=== PATIENT | male | born 1940 | race Caucasian/White ===

== ENCOUNTER 2016-04-20 13:20 | Outpatient (CLI) | payer OTHER, MEDICARE | END 2016-04-20 23:59 | DX: D72.829 Elevated white blood cell count, unspecified (principal); E78.2 Mixed hyperlipidemia; I10 Essential (primary) hypertension ==

== ENCOUNTER 2016-11-22 13:33 | Outpatient (CLI) | payer OTHER, MEDICARE ==
[2016-11-22 19:24] LABS: BASOPHILS # (AUTO) 0.1 10^3/uL (0.0-0.1); BASOPHILS % (AUTO) 0.5 %; EOSINOPHILS # (AUTO) 0.1 10^3/uL (0.0-0.7); EOSINOPHILS % (AUTO) 0.7 %; HCT - HEMATOCRIT 47.8 % (42.0-52.0); LYMPHOCYTES # (AUTO) 1.8 10^3/uL (1.5-3.5); LYMPHOCYTES % (AUTO) 14.5 %; MEAN CORPUSCULAR HGB CONC 33.5 g/dL (32.0-36.0); MEAN CORPUSCULAR VOLUME 95.5 fL (80.0-94.0); MEAN PLATELET VOLUME 8.5 fL (7.4-11.4); MONOCYTES # (AUTO) 1.2 10^3/uL (0.0-1.0); MONOCYTES % (AUTO) 9.7 %; NEUTROPHILS # (AUTO) 9.4 10^3/uL (1.5-6.6); NEUTROPHILS % (AUTO) 74.6 %; NUCLEATED RED BLOOD CELLS AUTO 0.1 /100WBC; RED CELL DISTRIBUTION WIDTH 13.6 % (12.0-15.0); UNCORRECTED WHITE BLOOD COUNT 12.6 x10^3/uL; WHITE BLOOD COUNT 12.6 x10^3/uL (4.8-10.8)
[2016-11-22 19:39] LABS: ALBUMIN/GLOBULIN RATIO 1.4 (1.0-2.2); BILIRUBIN,TOTAL 0.4 mg/dL (0.2-1.0); CALCIUM 9.8 mg/dL (8.5-10.3); CREATININE 0.9 mg/dL (0.6-1.2); POTASSIUM 3.9 mmol/L (3.5-5.0); TOTAL PROTEIN 6.9 g/dL (6.7-8.2)
== END 2016-11-22 13:34 | disposition home or self-care (01) ==
LOC: LAB.S 13:33
PROVIDERS: ATTEND Internal Medicine
DX: D72.829 Elevated white blood cell count, unspecified (principal); I10 Essential (primary) hypertension
CPT/HCPCS: 36415; 80053; 85025

== ENCOUNTER 2017-12-27 08:59 | Outpatient (CLI) | payer OTHER, MEDICARE ==
[2017-12-27 18:19] LABS: HB2 TOTAL 17.1 g/dL; HEMOGLOBIN A1C 0.77 g/dL; HEMOGLOBIN A1C % 6.3 % (4.6-6.2)
[2017-12-27 18:25] LABS: BUN - BLOOD UREA NITROGEN 22 mg/dL (6-20); CALCIUM 9.4 mg/dL (8.5-10.3); CARBON DIOXIDE - CO2 27 mmol/L (21-32); CHLORIDE 100 mmol/L (101-111); CHOL/HDL RATIO 4.8 (<5.0); CHOLESTEROL 192 mg/dL; GFR - MDRD 73 (>89); GLUCOSE 109 mg/dL (70-100); HDL CHOLESTEROL 40 mg/dL; LDL CHOLESTEROL,CALCULATED 116 mg/dL; LDL/HDL RATIO 2.9 (<3.6); SODIUM 134 mmol/L (135-145); VLDL CHOLESTEROL 36 mg/dL
== END 2017-12-27 09:00 | disposition home or self-care (01) ==
LOC: LAB.F 08:59
PROVIDERS: ATTEND Internal Medicine
DX: Z00.00 Encounter for general adult medical examination without abnormal findings (principal); I10 Essential (primary) hypertension; Z13.1 Encounter for screening for diabetes mellitus; D72.829 Elevated white blood cell count, unspecified
CPT/HCPCS: 36415; 80048; 80061; 83036; 83721; 85025

== ENCOUNTER 2018-01-03 09:42 | Outpatient (CLI) | payer OTHER, MEDICARE ==
[2018-01-03 17:32] LABS: BASOPHILS # (AUTO) 0.1 10^3/uL (0.0-0.1); BASOPHILS % (AUTO) 0.7 %; EOSINOPHILS # (AUTO) 0.1 10^3/uL (0.0-0.7); EOSINOPHILS % (AUTO) 0.9 %; HGB - HEMOGLOBIN 15.7 g/dL (14.0-18.0); LYMPHOCYTES # (AUTO) 1.8 10^3/uL (1.5-3.5); LYMPHOCYTES % (AUTO) 13.2 %; MEAN CORPUSCULAR HEMOGLOBIN 32.3 pg (27.0-31.0); MEAN CORPUSCULAR HGB CONC 33.5 g/dL (32.0-36.0); MEAN CORPUSCULAR VOLUME 96.4 fL (80.0-94.0); MEAN PLATELET VOLUME 8.6 fL (7.4-11.4); MONOCYTES # (AUTO) 1.5 10^3/uL (0.0-1.0); MONOCYTES % (AUTO) 11.7 %; NEUTROPHILS # (AUTO) 9.8 10^3/uL (1.5-6.6); NEUTROPHILS % (AUTO) 73.5 %; PLT - PLATELET COUNT 229 10^3/uL (130-450); RED BLOOD COUNT 4.86 10^6/uL (4.70-6.10); RED CELL DISTRIBUTION WIDTH 14.2 % (12.0-15.0); WHITE BLOOD COUNT 13.3 x10^3/uL (4.8-10.8)
== END 2018-01-03 09:43 | disposition home or self-care (01) ==
LOC: LAB.F 09:42
PROVIDERS: ATTEND Internal Medicine
DX: D72.829 Elevated white blood cell count, unspecified (principal)
CPT/HCPCS: 36415; 85025

== ENCOUNTER 2018-03-06 10:36 | Emergency (ER) | payer OTHER, MEDICARE ==
--- NOTE | 2018-03-06 11:52 | XRAY Report ---
Reason: left shoulder injury Procedure Date: 03/06/2018 Accession Number: [id number] / [id number] Procedure: XR - Shoulder 3 View LT CPT Code: FULL RESULT: EXAM: LEFT SHOULDER RADIOGRAPHY EXAM DATE: 03/06/2018 11:43 AM. CLINICAL HISTORY: Left shoulder injury. COMPARISON: None. TECHNIQUE: 3 views. FINDINGS: Bones: Deformity of the humeral head suggestive of so-called Hill-Sachs lesion, prior dislocation. No acute fracture or bone lesion. Joints: The glenohumeral and acromioclavicular joints are normally located at this time. Soft tissues: The visualized hemithorax is unremarkable. No soft tissue swelling. IMPRESSION: Evidence of prior dislocation. Currently no acute fracture or dislocation is detected. [facility]
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
[2018-03-06 12:15] VITALS: BP 134/74
== END 2018-03-06 12:14 | disposition home or self-care (01) ==
LOC: ED 10:36
DX: M25.512 Pain in left shoulder (principal); W01.0XXA Fall on same level from slipping, tripping and stumbling without subsequent striking against object, initial encounter; Y92.410 Unspecified street and highway as the place of occurrence of the external cause; Z87.828 Personal history of other (healed) physical injury and trauma; I10 Essential (primary) hypertension
CPT/HCPCS: 99282; 99283

== ENCOUNTER 2018-05-24 12:36 | Outpatient (CLI) | payer MEDICARE, OTHER ==
--- NOTE | 2018-05-25 09:37 | MRI Report ---
Reason: JOINT PAIN IN LEFT SHOULDER Procedure Date: 05/24/2018 Accession Number: [id number] / [id number] Procedure: MRI - Shoulder LT W/O CPT Code: FULL RESULT: EXAM: LEFT SHOULDER MRI WITHOUT CONTRAST EXAM DATE: 05/24/2018 12:59 PM. CLINICAL HISTORY: Joint pain in left shoulder. COMPARISON: None. TECHNIQUE: Multiplanar, multisequence T1-weighted and fluid-sensitive sequences of the shoulder without contrast. Other: None. FINDINGS: Acromioclavicular Region: The acromion is type II unipartite. Acromioclavicular joint is moderately osteoarthritic. The coracoacromial and coracoclavicular ligaments are intact. Moderate amount of bursal fluid is present. Glenohumeral Region: Superior subluxation of the humeral head with respect to the bony glenoid. Small joint effusion. The articular cartilage is unremarkable. The glenohumeral ligaments and joint capsule are unremarkable. Bone Marrow: No fracture, marrow edema or bone lesions. Labrum: The labrum is unremarkable on this nonarthrographic study. Musculature/Rotator Cuff: Full-thickness tear and proximal retraction of the supraspinatus and infraspinatus portion of the rotator cuff with significant fatty atrophy of these muscle bundles. Series 801 image 22, series 701 image 11. Subscapularis shows a tear of the superior one-third. Teres minor is intact. Biceps Tendon: The long head of the biceps tendon is perched at the medial border of the bicipital groove and slightly flattened. Series 401 image 15. Some type I signal change also noted. Other: The subcutaneous tissues are unremarkable. IMPRESSION: 1. Type II unipartite undersurface osseous acromion shape. AC joint is moderately osteoarthritic. Moderate amount of bursal fluid also is present. 2. Superior subluxation of the humeral head with respect to the bony glenoid, small joint effusion. 3. Full-thickness tears with proximal retraction and fatty atrophy of the supraspinatus portion and infraspinatus portion of the rotator cuff. Subscapularis shows a tear at the superior one-third. There is also resulting medial subluxation of the long head of the biceps tendon onto the medial margin of the bicipital groove. Some flattening of the biceps tendon. [facility] MUSCULOSKELETAL RADIOLOGY SECTION
== END 2018-05-24 12:37 | disposition home or self-care (01) ==
LOC: DI 12:36
PROVIDERS: ATTEND Orthopaedic Surgery Sports Medicine
DX: S43.002A Unspecified subluxation of left shoulder joint, initial encounter (principal); M25.412 Effusion, left shoulder; M75.102 Unspecified rotator cuff tear or rupture of left shoulder, not specified as traumatic; M67.88 Other specified disorders of synovium and tendon, other site

== ENCOUNTER 2018-07-07 15:37 | Outpatient (CLI) | payer MEDICARE, OTHER ==
[2018-07-07 17:34] LABS: HGB - HEMOGLOBIN 15.7 g/dL (14.0-18.0); MEAN CORPUSCULAR HEMOGLOBIN 31.6 pg (27.0-31.0); MEAN CORPUSCULAR HGB CONC 33.3 g/dL (32.0-36.0); MEAN CORPUSCULAR VOLUME 94.9 fL (80.0-94.0); MEAN PLATELET VOLUME 8.9 fL (7.4-11.4); RED BLOOD COUNT 4.95 10^6/uL (4.70-6.10); RED CELL DISTRIBUTION WIDTH 13.3 % (12.0-15.0); WHITE BLOOD COUNT 11.9 x10^3/uL (4.8-10.8)
[2018-07-07 17:37] LABS: CREATININE 0.9 mg/dL (0.6-1.2)
[2018-07-07 17:49] LABS: HB2 TOTAL 17.4 g/dL; HEMOGLOBIN A1C 0.77 g/dL; HEMOGLOBIN A1C % 6.2 % (4.6-6.2)
[2018-07-07 18:28] LABS: CALCIUM 9.5 mg/dL (8.5-10.3)
== END 2018-07-07 23:59 | disposition home or self-care (01) ==
LOC: LAB.F 15:37
PROVIDERS: ATTEND Internal Medicine
DX: I10 Essential (primary) hypertension (principal); R73.01 Impaired fasting glucose; M25.512 Pain in left shoulder
CPT/HCPCS: 36415; 80048; 83036; 85027

== ENCOUNTER 2018-07-24 13:42 | Outpatient (CLI) | payer MEDICARE, OTHER ==
[2018-07-24 14:02] LABS: BASOPHILS # (AUTO) 0.1 10^3/uL (0.0-0.1); BASOPHILS % (AUTO) 0.4 %; EOSINOPHILS # (AUTO) 0.1 10^3/uL (0.0-0.7); EOSINOPHILS % (AUTO) 0.3 %; HGB - HEMOGLOBIN 15.6 g/dL (14.0-18.0); LYMPHOCYTES # (AUTO) 1.7 10^3/uL (1.5-3.5); LYMPHOCYTES % (AUTO) 11.1 %; MEAN CORPUSCULAR HEMOGLOBIN 31.6 pg (27.0-31.0); MEAN CORPUSCULAR HGB CONC 33.8 g/dL (32.0-36.0); MEAN CORPUSCULAR VOLUME 93.6 fL (80.0-94.0); MEAN PLATELET VOLUME 7.4 fL (7.4-11.4); MONOCYTES # (AUTO) 1.5 10^3/uL (0.0-1.0); MONOCYTES % (AUTO) 9.7 %; NEUTROPHILS % (AUTO) 78.5 %; PLT - PLATELET COUNT 230 10^3/uL (130-450); RED BLOOD COUNT 4.94 10^6/uL (4.70-6.10); RED CELL DISTRIBUTION WIDTH 13.3 % (12.0-15.0); WHITE BLOOD COUNT 15.3 x10^3/uL (4.8-10.8)
[2018-07-24 14:17] LABS: ALBUMIN 3.8 g/dL (3.2-5.5); ALBUMIN/GLOBULIN RATIO 1.2 (1.0-2.2); BILIRUBIN,TOTAL 0.8 mg/dL (0.2-1.0); CALCIUM 9.4 mg/dL (8.5-10.3); CREATININE 0.9 mg/dL (0.6-1.2); TOTAL PROTEIN 7.1 g/dL (6.7-8.2)
[2018-07-24 14:30] LABS: PLATELET ESTIMATE, MANUAL NORMAL (130-450,000) (NORMAL); PLATELET MORPHOLOGY NORMAL APPEARANCE (NORMAL); RBC MORPHOLOGY (MULTIPLE) NORMAL APPEARANCE (NORMAL)
== END 2018-07-24 13:43 ==
LOC: LAB 13:42 → RT 13:43
PROVIDERS: ATTEND Orthopaedic Surgery Sports Medicine
DX: Z01.810 Encounter for preprocedural cardiovascular examination (principal); M75.102 Unspecified rotator cuff tear or rupture of left shoulder, not specified as traumatic
CPT/HCPCS: 36415; 80053; 85025; 93005

== ENCOUNTER 2018-07-25 13:44 | Outpatient (CLI) | payer MEDICARE, OTHER ==
[2018-07-25 14:04] LABS: BILIRUBIN,URINE NEGATIVE (NEGATIVE); GLUCOSE, URINE (UA) NEGATIVE (NEGATIVE); KETONES,URINE (UA) NEGATIVE (NEGATIVE); LEUKOCYTE ESTERASE, URINE NEGATIVE (NEGATIVE); NITRITE,URINE NEGATIVE (NEGATIVE); OCCULT BLOOD,URINE NEGATIVE (NEGATIVE); PROTEIN,URINE NEGATIVE (NEGATIVE); UROBILINOGEN,URINE 0.2 (NORMAL) E.U./dL (NORMAL)
[2018-07-25 14:37] LABS: CLARITY,URINE CLEAR (CLEAR)
[2018-07-25 15:03] LABS: BACTERIA,URINE None Seen /HPF (None Seen); RBC,URINE None Seen /HPF (0-5); SQUAMOUS EPITHELIAL CELL,UR NONE SEEN (<= Few)
== END 2018-07-25 13:45 | disposition home or self-care (01) ==
LOC: LAB 13:44
PROVIDERS: ATTEND Orthopaedic Surgery Sports Medicine
DX: Z01.812 Encounter for preprocedural laboratory examination (principal); M75.102 Unspecified rotator cuff tear or rupture of left shoulder, not specified as traumatic; M62.89 Other specified disorders of muscle
CPT/HCPCS: 81001; 81003

== ENCOUNTER 2018-07-26 06:06 | Day surgery (SDC) | payer MEDICARE, OTHER ==
[2018-07-26] MEDS ORDERED: LACTATED RINGERS 1,000 ML IV ONE (06:21)
[2018-07-26] MEDS ORDERED: CEFAZOLIN SODIUM IN 0.9 % NACL 2 GM/100 ML BAG IV ONE (06:29)
--- NOTE | 2018-07-26 07:07 | ANESTHESIA ---
Pre-Anesthesia VS, & Labs - Diagnosis left shoulder rotator cuff tear, bicep subluxation - Procedure left shoulder arthroscopy, rotator cuff repair, subacromial decompression Vital Signs: Temp Pulse Resp BP Pulse Ox 97.9 C H 58 L 16 166/88 H 98 07/26/18 06:36 07/26/18 06:36 07/26/18 06:36 07/26/18 06:36 07/26/18 06:36 Height 5 ft 5 in Weight (kg) 75 kg Body Mass Index 28.3 - NPO >8 hours - Lab Results Current Lab Results: Laboratory Tests 07/24/18 13:57: C-Reactive Protein 2.8 H 07/24/18 13:57: ESR 4 Home Medications and Allergies Atenolol 100 mg PO DAILY 01/21/15 Cholecalciferol (Vitamin D3) [Vitamin D3] 2,000 unit PO DAILY 01/21/15 Lisinopril 20 mg PO DAILY 01/21/15 amLODIPine [Norvasc] 5 mg PO DAILY 01/21/15 Chlorthalidone 25 mg PO DAILY 03/06/18 Allergies/Adverse Reactions: Allergies Allergy/AdvReac Type Severity Reaction Status Date / Time Sulfa (Sulfonamide Allergy Hives Verified 07/24/18 13:20 Antibiotics) Anes History & Medical History - Anesthetic History Anesthesia Complications: reports: No previous complications - Medical History Cardiovascular: reports: Hypertension, Other (syncope in past, negative stress after per patient) Pulmonary: reports: Sleep apnea (diagnosed, does not use cpap) Gastrointestinal: reports: None Urinary: reports: Benign prostate hypertrophy, Nocturia Musculoskeletal: reports: Osteoarthritis Endocrine/Autoimmune: reports: None Skin: reports: None Smoking Status: Current every day smoker (half pack per day) - Surgical History General: Cholecystectomy, Colonoscopy, Other Exam General: Alert Dental: WNL Mouth Opening: Greater than 4 Fingerbreadths Neck Mobility: Normal Mallampati classification: II Thyromental Distance: greater than 6 cm Respiratory: Lungs clear Cardiovascular: Regular rate, Normal S1, Normal S2 Mental/Cognitive Status: Alert/Oriented X3 Cognitive Status: Within normal limits Plan Anesthesia Type: General Regional Block: Per Surgeon's request for Post Op pain control Consent for Procedure(s) Verified and Reviewed: Yes Code Status: Attempt Resuscitation ASA classification: 2-Mild systemic disease Is this case an emergency?: No
[2018-07-26] MEDS ORDERED: BUPIVACAINE 0.25%-EPI 1:200000 PF 30 ML VIAL ONE (07:24)
[2018-07-26] MEDS ORDERED: EPINEPHrine 1 MG/ML AMP ONE ×2 (07:24→10:09)
[2018-07-26] MEDS ORDERED: BUPIVACAINE 0.5% PF 30 ML VIAL ONE (07:24)
[2018-07-26] MEDS ORDERED: BUPIVACAINE 0.25%-EPI 1:200000 PF 30 ML VIAL SUBQ ONE (08:29)
[2018-07-26] MEDS ORDERED: fentaNYL 100 MCG/2 ML VIAL IVP ONE (08:40)
[2018-07-26] MEDS ORDERED: SODIUM CHLORIDE 0.9% 10 ML VIAL IV ONE (08:40)
[2018-07-26] MEDS ORDERED: LIDOCAINE-MPF 2% 5 ML VIAL IM ONE (08:40)
[2018-07-26] MEDS ORDERED: DEXAMETHASONE 4 MG/ML VIAL IVP ONE (08:40)
[2018-07-26] MEDS ORDERED: ePHEDrine 50 MG/ML VIAL IVP ONE (08:40)
[2018-07-26] MEDS ORDERED: PROPOFOL 200 MG/20 ML VIAL IVP ONE (08:40)
[2018-07-26] MEDS ORDERED: MIDAZOLAM 2 MG/2 ML VIAL IVP ONE (08:40)
[2018-07-26] MEDS ORDERED: ONDANSETRON 4 MG/2 ML VIAL IVP ONE (08:40)
[2018-07-26] MEDS ORDERED: ROCURONIUM 50 MG/5 ML VIAL IVP ONE (08:40)
[2018-07-26] MEDS ORDERED: PHENYLEPHRINE 50 MG/5 ML VIAL IV ONE (08:40)
[2018-07-26] MEDS ORDERED: ROPIVACAINE 0.5% PF 20 ML AMPULE EP ONE (08:40)
--- NOTE | 2018-07-26 10:56 | IMMEDIATE POSTOPERATIVE NOTE ---
Immediate Postoperative Note - Procedure Note Procedure Date: 07/26/18 Pre-Op Diagnosis: Left rotator cuff tear subacromial impingement Procedure: Left arthroscopic rotator cuff repair, long head biceps tenodesis, ltd sad Post-Op Diagnosis: Same Primary Surgeon: Nicole Jung [employer] Driver: Collette farah Anesthesia Type: General ET tube, Local, Regional block Findings: Massive rotator cuff tear supraspinatus infraspinatus long head biceps tearing/subluxation Complications: No complications Estimated Blood Loss (in cc): 50 Plan of Care: Patient will follow delayed rotator cuff repair protocol and long head biceps protocol left shoulder. He would be passive range of motion for 8 to 12 weeks minimum. He would avoid active shoulder motion he would avoid any weightbearing lift push pull left upper extremity. With caution he would be permitted to do elbow wrist and hand motion. He would wear sling and pillow at all times.
[2018-07-26] MEDS ORDERED: ONDANSETRON 4 MG/2 ML VIAL IVP PRN (11:00)
[2018-07-26] MEDS ORDERED: oxyCODONE 5 MG TABLET PO PRN (11:03)
--- NOTE | 2018-07-26 12:06 | OPERATIVE REPORT ---
DATE OF SERVICE: 07/26/2018 Physician: Nestor Jung MD SURGEON: Nestor Jung MD CRUTCHING CONTRACTOR: None. ANESTHESIA PROVIDER: Marquez Rogers CRNA. ANESTHESIA: General endotracheal as well as left side ultrasound-guided interscalene block by anesthesia team as well as 20 mL of 0.25% Marcaine with epinephrine local. ESTIMATED BLOOD LOSS: Less than 50 mL FLUIDS: 800 mL lactated Ringer's. COMPRESSION DEVICE: Bilateral calf SCD boots. PREOPERATIVE ANTIBIOTICS: Weight-based IV Ancef. ORTHOPEDIC IMPLANTS 1. Arthrex Plum.io 5.5 BioComposite triple-loaded corkscrews x3. 2. Arthrex 8 mm SwiveLock x 19 mm. 3. Numerous #2 FiberWire sutures PREOPERATIVE DIAGNOSES 1. Left shoulder massive rotator cuff tear. 2. Left shoulder subacromial impingement. 3. Left shoulder long head biceps tearing and subluxation. POSTOPERATIVE DIAGNOSES 1. Left shoulder massive rotator cuff tear. 2. Left shoulder subacromial impingement. 3. Left shoulder long head biceps tearing and subluxation. PROCEDURES 1. Left shoulder arthroscopic rotator cuff repair, massive tear. 2. Left shoulder arthroscopic long head biceps tenodesis. 3. Left shoulder limited arthroscopic subacromial decompression of soft tissue. HISTORY OF PRESENT ILLNESS AND INDICATIONS: Patient is a gentleman who sustained a rotator cuff tear a number of months ago and had somewhat delayed operative treatment for personal reasons. He was previously indicated for operative treatment. Previous discussion of risks, benefits, and alternatives was had in the office visit. These were again highlighted in the preoperative care unit. His questions were answered. He verbalized understanding of the above and verbalized wish to proceed with operative treatment. Informed consent was given. PROCEDURE IN DETAIL: Patient has a massive rotator cuff tear, supraspinatus from the rotator interval all the way including portions of the infraspinatus. There was significant retraction medial to the glenoid rim. Long head biceps has greater than 50% tearing and subluxation, subscapularis okay, teres okay. There is glenohumeral chondromalacia and fraying of the labrum. Post-repair with medialization of the articular surface. The rotator cuff was able to be reapproximated to near anatomic footprint, though under some tension despite extensive soft tissue releases. The area has good integrity of the repair with range of motion of the shoulder. The long head biceps is well fixed in the superior aspect of the biceps groove. Previously noted soft tissues subacromial space with fibrosis and bursa tissue is cleared and there was minimal release of the coracoacromial ligament to maintain anterior superior stability. PROCEDURE: On 07/26/2018 patient was identified in the preoperative care unit. He identified his left shoulder as the operative site. This is signed. Patient is administered regional anesthesia by anesthesia team and was brought to the operating room. General anesthesia was administered. He was placed on the right side down lateral decubitus position with appropriately placed axillary roll to avoid encumbrance of the axilla. Head, neck and extremities are placed in anatomically comfortable and safe position to avoid peripheral nerve stretch and compression, down leg is gel-padded. Beanbag position is used and left upper extremity has a combination of 5-15 pounds of traction depending on the timing in the case. At this point left upper extremity is draped out. Axillary hair is shaved, as is the hair around the shoulder girdle. The shoulder girdle and left upper extremity were pre-scrubbed with Hibiclens solution and then prepped with ChloraPrep solution and draped in the normal sterile fashion. At this point, surgical pause identifies the left shoulder. Local anesthetic infused anteriorly, posteriorly and laterally. A small incision was made posteriorly. Scope was introduced into the glenohumeral joint. Diagnostic arthroscopy was carried out. Please see operative findings. At this point, anterior portal was created. Long head biceps was tagged using a #2 FiberWire suture and then released from the superior labrum. Labrum was debrided. The rotator cuff tear is debrided minimally from underneath and then attention was directed to the subacromial space. Lateral incision was made. A combination of shaver, bur and electrocautery device with appropriate flow to avoid thermal injury is used to achieve a subacromial decompression of soft tissue. There was minimal release of the coracoacromial ligament to maintain anterior superior stability should the rotator cuff failed. At this point, the edge of the rotator cuff is debrided with the shaver and then chisel and shaver used above and below the rotator cuff to release adhesions to better allow reduction of the rotator cuff. This still remained somewhat tight and this was done multiple times to try to achieve maximal freedom of the rotator cuff to have as little as possible tension on the repair. At this point, long head biceps was brought through an anterolateral axillary incision after the rotator cuff footprint is debrided first with a shaver then the articular surface is medialized by approximately 1 cm using a bur. At this point, the long head biceps is whipstitched with a #2 FiberWire and then placed into an 8 mm socket in the superior aspect of the biceps groove and held with a SwiveLock per protocol. This holds the biceps nicely and the residual suture limbs were cut. At this time, sequential placement of interrupted [id number] sutures with a [id number]-rh-rmul repair is performed posteriorly. Two of these are placed, thereby decreasing the size of the overall rotator cuff tear and bringing the posterior aspect anterior to some degree. And then sequential posterior to anterior anchors were then placed to converge the rotator cuff towards near anatomic footprint and these anchors are tied sequentially. Ultimately, the rotator cuff is reapposed in the near anatomic footprint, which is somewhat medialized. There is some tension on the cuff, but good integrity to the repair with range of motion. Hemostasis achieved. Subacromial space. Copious irrigation was performed. Instruments removed. Local anesthetic was infused around the incisions. Arthroscopic portals were closed using interrupted nylon suture. Skin is washed and dried. Xeroform dressing is applied. Dry sterile dressing was applied and the patient was placed in abduction pillow sling. Patient tolerated the procedure well. Instrument and sponge counts were correct. Patient was transferred to recovery room and will follow a delayed rotator cuff repair protocol with avoidance of any active assisted or active motion for approximately 8-10 weeks. He would be in the sling for the great majority of that though exercises elbow, wrist and hand to avoid stiffness there. Attempt was made to contact Kina patient's family/friend unavailable in the waiting room or via telephone. Patient was previously instructed on perioperative instructions as well as antibiotics and pain medication. Denies any contraindication to medication as prescribed. Will use them as directed. Patient will followup in 10-14 days for standard postop visit or sooner should problems or questions arise. Preoperatively, his questions were answered, verbalized understanding and satisfaction with the plan. TD: 07/26/2018 11:22 JAEL
[2018-07-26 12:46] VITALS: BP 118/65
== END 2018-07-26 06:07 | disposition home or self-care (01) ==
LOC: SDS 06:06
PROVIDERS: ATTEND Orthopaedic Surgery Sports Medicine
PROC: 0LS24ZZ Reposition Left Shoulder Tendon, Percutaneous Endoscopic Approach (ICD-10-PCS; 2018-07-26)
PROC: 0RNK4ZZ Release Left Shoulder Joint, Percutaneous Endoscopic Approach (ICD-10-PCS; 2018-07-26)
PROC: 0LQ24ZZ Repair Left Shoulder Tendon, Percutaneous Endoscopic Approach (ICD-10-PCS; principal; 2018-07-26 07:30)
PROC: 0RHK44Z Insertion of Internal Fixation Device into Left Shoulder Joint, Percutaneous Endoscopic Approach (ICD-10-PCS; 2018-07-26 07:30)
DX: M75.102 Unspecified rotator cuff tear or rupture of left shoulder, not specified as traumatic (principal); S46.112A Strain of muscle, fascia and tendon of long head of biceps, left arm, initial encounter; M75.42 Impingement syndrome of left shoulder; M94.212 Chondromalacia, left shoulder; I10 Essential (primary) hypertension; F17.210 Nicotine dependence, cigarettes, uncomplicated; G47.30 Sleep apnea, unspecified
CPT/HCPCS: 29826; 29827; 29828; 85651; 86140; C1713; J0690; J7120

== ENCOUNTER 2020-02-12 11:28 | Outpatient (CLI) | payer MEDICARE, OTHER ==
[2020-02-12 15:17] LABS: BASOPHILS # (AUTO) 0.1 10^3/uL (0.0-0.1); BASOPHILS % (AUTO) 0.6 %; EOSINOPHILS # (AUTO) 0.1 10^3/uL (0.0-0.7); EOSINOPHILS % (AUTO) 1.1 %; HGB - HEMOGLOBIN 15.9 g/dL (14.0-18.0); LYMPHOCYTES # (AUTO) 1.9 10^3/uL (1.5-3.5); MEAN CORPUSCULAR HEMOGLOBIN 31.9 pg (27.0-31.0); MEAN CORPUSCULAR HGB CONC 32.8 g/dL (32.0-36.0); MEAN CORPUSCULAR VOLUME 97.2 fL (80.0-94.0); MEAN PLATELET VOLUME 10.2 fL (7.4-11.4); MONOCYTES # (AUTO) 1.2 10^3/uL (0.0-1.0); MONOCYTES % (AUTO) 9.8 %; NEUTROPHILS # (AUTO) 8.6 10^3/uL (1.5-6.6); NEUTROPHILS % (AUTO) 71.5 %; PLT - PLATELET COUNT 243 10^3/uL (130-450); RED BLOOD COUNT 4.99 10^6/uL (4.70-6.10); RED CELL DISTRIBUTION WIDTH 13.4 % (12.0-15.0)
[2020-02-12 15:34] LABS: ALBUMIN 3.9 g/dL (3.2-5.5); ALBUMIN/GLOBULIN RATIO 1.2 (1.0-2.2); ALKALINE PHOSPHATASE 75 IU/L (42-121); ALT ALANINE AMINOTRANSFERASE 26 IU/L (10-60); AST ASPARTATE AMINOTRANSFERASE 23 IU/L (10-42); BILIRUBIN,TOTAL 0.9 mg/dL (0.2-1.0); BUN - BLOOD UREA NITROGEN 26 mg/dL (6-20); CALCIUM 9.6 mg/dL (8.5-10.3); CARBON DIOXIDE - CO2 27 mmol/L (21-32); CHLORIDE 101 mmol/L (101-111); CHOL/HDL RATIO 4.8 (<5.0); CHOLESTEROL 209 mg/dL; CREATININE 1.1 mg/dL (0.6-1.2); GLUCOSE 99 mg/dL (70-100); HDL CHOLESTEROL 44 mg/dL; LDL CHOLESTEROL,CALCULATED 129 mg/dL; LDL/HDL RATIO 2.9 (<3.6); SODIUM 139 mmol/L (135-145); TOTAL PROTEIN 7.2 g/dL (6.7-8.2); VLDL CHOLESTEROL 36 mg/dL
[2020-02-12 15:47] LABS: PSA FREE 0.71 ng/mL (0.16-2.81)
[2020-02-12 15:48] LABS: PSA TOTAL 3.2 ng/mL (0.000-2.000)
== END 2020-02-12 11:29 | disposition home or self-care (01) ==
LOC: LAB.S 11:28
PROVIDERS: ATTEND Registered Nurse
DX: I10 Essential (primary) hypertension (principal); G47.30 Sleep apnea, unspecified; F17.200 Nicotine dependence, unspecified, uncomplicated; N40.1 Benign prostatic hyperplasia with lower urinary tract symptoms
CPT/HCPCS: 36415; 80053; 80061; 83721; 84153; 84154; 84443; 85025

== ENCOUNTER 2020-10-24 10:37 | Outpatient (CLI) | payer MEDICARE, OTHER ==
--- NOTE | 2020-10-24 11:03 | XRAY Report ---
PROCEDURE: Hand 3 View RT INDICATIONS: CRUSHING INJ OF RIGHT HAND TECHNIQUE: 3 views of the hand acquired. COMPARISON: None. FINDINGS: Bones: No acute fractures or dislocations. No suspicious bony lesions. There is mild ulnar deviati on of the second through fifth fingers. Joint space narrowing is seen at the fourth metacarpophalange al joint and throughout the proximal interphalangeal joints as well as the second distal interphalang eal joint. No osseous erosion is seen. Soft tissues: No suspicious soft tissue calcifications. Soft tissue edema is seen at the dorsum of the hand. IMPRESSION: 1. No acute osseous abnormality. Soft tissue edema is seen at the dorsum of the hand. 2. Multifocal arthritic changes may be related to primary osteoarthrosis versus possibly a chronic i nflammatory arthritis. Recommend correlation with clinical findings and serologies. 3. If there is clinical concern or persistent symptoms, additional imaging such as repeat radiograph s or advanced imaging (e.g. CT, MRI) may be helpful for further evaluation. Reviewed by: Les Bah MD on 10/24/2020 11:02 AM PDT Approved by: Les Bah MD on 10/24/2020 11:02 AM PDT Station ID: [id number]
== END 2020-10-24 23:59 | disposition home or self-care (01) ==
LOC: DI.S 10:37
PROVIDERS: ATTEND Physician Assistant Medical
DX: S67.91XA Crushing injury of unspecified part(s) of right wrist, hand and fingers, initial encounter (principal); M19.041 Primary osteoarthritis, right hand

== ENCOUNTER 2021-02-12 09:30 | Outpatient (CLI) | payer MEDICARE, OTHER ==
[2021-02-12 15:01] LABS: BASOPHILS # (AUTO) 0.1 10^3/uL (0.0-0.1); BASOPHILS % (AUTO) 0.6 %; EOSINOPHILS # (AUTO) 0.1 10^3/uL (0.0-0.7); EOSINOPHILS % (AUTO) 1.1 %; HCT - HEMATOCRIT 47.1 % (42.0-52.0); LYMPHOCYTES # (AUTO) 1.8 10^3/uL (1.5-3.5); LYMPHOCYTES % (AUTO) 14.7 %; MEAN CORPUSCULAR HEMOGLOBIN 32.7 pg (27.0-31.0); MEAN CORPUSCULAR VOLUME 96.3 fL (80.0-94.0); MEAN PLATELET VOLUME 10.1 fL (7.4-11.4); MONOCYTES # (AUTO) 1.3 10^3/uL (0.0-1.0); MONOCYTES % (AUTO) 10.8 %; NEUTROPHILS # (AUTO) 8.5 10^3/uL (1.5-6.6); NEUTROPHILS % (AUTO) 71.8 %; PLT - PLATELET COUNT 259 10^3/uL (130-450); RED BLOOD COUNT 4.89 10^6/uL (4.70-6.10); WHITE BLOOD COUNT 11.9 x10^3/uL (4.8-10.8)
[2021-02-12 15:24] LABS: ALBUMIN 3.7 g/dL (3.2-5.5); ALBUMIN/GLOBULIN RATIO 1.2 (1.0-2.2); ALKALINE PHOSPHATASE 75 IU/L (42-121); ALT ALANINE AMINOTRANSFERASE 25 IU/L (10-60); AST ASPARTATE AMINOTRANSFERASE 24 IU/L (10-42); BILIRUBIN,TOTAL 0.4 mg/dL (0.2-1.0); BUN - BLOOD UREA NITROGEN 24 mg/dL (6-20); CALCIUM 9.2 mg/dL (8.5-10.3); CARBON DIOXIDE - CO2 27 mmol/L (21-32); CHLORIDE 100 mmol/L (101-111); CHOL/HDL RATIO 4.5 (<5.0); CHOLESTEROL 195 mg/dL; CREATININE 0.9 mg/dL (0.6-1.2); GFR - MDRD 81 (>89); GLUCOSE 113 mg/dL (70-100); HDL CHOLESTEROL 43 mg/dL; LDL CHOLESTEROL,CALCULATED 122 mg/dL; LDL/HDL RATIO 2.8 (<3.6); POTASSIUM 3.7 mmol/L (3.5-5.0); SODIUM 138 mmol/L (135-145); TOTAL PROTEIN 6.7 g/dL (6.7-8.2); TRIGLYCERIDES 148 mg/dL; VLDL CHOLESTEROL 30 mg/dL
[2021-02-12 15:34] LABS: THYROID STIMULATING HORMONE 2.12 uIU/mL (0.34-5.60)
== END 2021-02-12 09:31 | disposition home or self-care (01) ==
LOC: LAB.S 09:30
PROVIDERS: ATTEND Registered Nurse
DX: I10 Essential (primary) hypertension (principal); N40.1 Benign prostatic hyperplasia with lower urinary tract symptoms; F17.200 Nicotine dependence, unspecified, uncomplicated
CPT/HCPCS: 36415; 80053; 80061; 83721; 84443; 85025

== ENCOUNTER 2021-03-04 07:00 | Outpatient (CLI) | payer MEDICARE, OTHER ==
[2021-03-04 20:31] LABS: FECAL OCCULT BLOOD (FIT) NEGATIVE (NEGATIVE)
== END 2021-03-04 23:59 | disposition home or self-care (01) ==
LOC: LAB 07:00
PROVIDERS: ATTEND Internal Medicine
DX: Z12.11 Encounter for screening for malignant neoplasm of colon (principal)
CPT/HCPCS: 82274

== ENCOUNTER 2022-02-10 11:30 | Outpatient (CLI) | payer MEDICARE, OTHER ==
[2022-02-10 15:09] LABS: BASOPHILS # (AUTO) 0.1 10^3/uL (0.0-0.1); BASOPHILS % (AUTO) 0.6 %; EOSINOPHILS # (AUTO) 0.1 10^3/uL (0.0-0.7); HCT - HEMATOCRIT 47.5 % (42.0-52.0); HGB - HEMOGLOBIN 15.7 g/dL (14.0-18.0); LYMPHOCYTES # (AUTO) 1.9 10^3/uL (1.5-3.5); LYMPHOCYTES % (AUTO) 16.3 %; MEAN CORPUSCULAR HEMOGLOBIN 32.2 pg (27.0-31.0); MEAN CORPUSCULAR HGB CONC 33.1 g/dL (32.0-36.0); MEAN CORPUSCULAR VOLUME 97.5 fL (80.0-94.0); MONOCYTES # (AUTO) 1.1 10^3/uL (0.0-1.0); MONOCYTES % (AUTO) 9.6 %; NEUTROPHILS # (AUTO) 8.3 10^3/uL (1.5-6.6); NEUTROPHILS % (AUTO) 71.6 %; PLT - PLATELET COUNT 245 10^3/uL (130-450); RED BLOOD COUNT 4.87 10^6/uL (4.70-6.10); RED CELL DISTRIBUTION WIDTH 13.2 % (12.0-15.0); WHITE BLOOD COUNT 11.6 x10^3/uL (4.8-10.8)
[2022-02-10 15:36] LABS: ALBUMIN 3.6 g/dL (3.2-5.5); ALBUMIN/GLOBULIN RATIO 1.1 (1.0-2.2); ALKALINE PHOSPHATASE 69 IU/L (42-121); ALT ALANINE AMINOTRANSFERASE 20 IU/L (10-60); AST ASPARTATE AMINOTRANSFERASE 20 IU/L (10-42); BILIRUBIN,TOTAL 0.5 mg/dL (0.2-1.0); BUN - BLOOD UREA NITROGEN 26 mg/dL (6-20); CALCIUM 9.5 mg/dL (8.5-10.3); CARBON DIOXIDE - CO2 30 mmol/L (21-32); CHLORIDE 99 mmol/L (101-111); CHOL/HDL RATIO 5.5 (<5.0); CHOLESTEROL 213 mg/dL; CREATININE 1.1 mg/dL (0.6-1.2); GFR - MDRD 64 (>89); GLUCOSE 116 mg/dL (70-100); HDL CHOLESTEROL 39 mg/dL; LDL CHOLESTEROL,CALCULATED 140 mg/dL; LDL/HDL RATIO 3.6 (<3.6); SODIUM 139 mmol/L (135-145); TOTAL PROTEIN 6.9 g/dL (6.7-8.2); TRIGLYCERIDES 172 mg/dL; VLDL CHOLESTEROL 34 mg/dL
[2022-02-10 15:43] LABS: THYROID STIMULATING HORMONE 2.11 uIU/mL (0.34-5.60)
== END 2022-02-10 11:31 | disposition home or self-care (01) ==
LOC: LAB.S 11:30
PROVIDERS: ATTEND Internal Medicine
DX: Z00.00 Encounter for general adult medical examination without abnormal findings (principal); I10 Essential (primary) hypertension; Z13.220 Encounter for screening for lipoid disorders
CPT/HCPCS: 36415; 80053; 80061; 83721; 84443; 85025

== ENCOUNTER 2022-03-22 09:45 | Outpatient (CLI) | payer MEDICARE, OTHER | END 2022-03-22 23:59 | disposition home or self-care (01) | LOC: LAB.S 09:45 | PROVIDERS: ATTEND Physician Assistant Medical | DX: R39.15 Urgency of urination (principal) | CPT/HCPCS: 87086 ==

== ENCOUNTER 2022-04-26 18:59 | Outpatient (CLI) | payer MEDICARE, OTHER | END 2022-04-26 19:00 | disposition short-term general hospital (02) | LOC: EMS 18:59 | DX: R56.9 Unspecified convulsions (principal); I45.10 Unspecified right bundle-branch block | CPT/HCPCS: A0425; A0429 ==

== ENCOUNTER 2022-07-14 13:52 | Outpatient (CLI) | payer MEDICARE, OTHER | END 2022-07-14 13:53 | disposition home or self-care (01) | LOC: MAC.MOP 13:52 | PROVIDERS: ATTEND Internal Medicine | DX: I63.9 Cerebral infarction, unspecified (principal) | CPT/HCPCS: 93246 ==

== ENCOUNTER 2022-08-11 10:30 | Outpatient (CLI) | payer MEDICARE, OTHER | END 2022-08-11 10:31 | disposition home or self-care (01) | LOC: MAC.INF 10:30 | PROVIDERS: ATTEND Internal Medicine | DX: I47.1 Supraventricular tachycardia (principal); I47.20 Ventricular tachycardia, unspecified; I49.1 Atrial premature depolarization; I49.3 Ventricular premature depolarization; Z86.73 Personal history of transient ischemic attack (TIA), and cerebral infarction without residual deficits | CPT/HCPCS: 93248 ==

== ENCOUNTER 2023-01-25 11:41 | Outpatient (CLI) | payer MEDICARE, OTHER ==
--- NOTE | 2023-01-25 12:11 | XRAY Report ---
PROCEDURE: Knee 3 View LT INDICATIONS: CONTUSION OF LEFT KNEE TECHNIQUE: 3 views of the knee(s) were acquired. COMPARISON: None. FINDINGS: Bones: No fractures or dislocations. No suspicious bony lesions. Tricompartment osteophytes. Silvia re medial compartment joint space loss with lateral subluxation of the tibia relative to the femur. Soft tissues: Trace knee joint effusion. No suspicious soft tissue calcifications or masses. IMPRESSION: No acute bony abnormality. Severe degenerative arthritis of the left knee. Reviewed by: Jorge Huitron MD on 01/25/2023 12:09 PM PST Approved by: Jorge Huitron MD on 01/25/2023 12:09 PM PST Station ID: [id number]
== END 2023-01-25 23:59 | disposition home or self-care (01) ==
LOC: DI.S 11:41
PROVIDERS: ATTEND Physician Assistant
DX: M17.12 Unilateral primary osteoarthritis, left knee (principal)

== ENCOUNTER 2023-02-21 09:19 | Outpatient (CLI) | payer MEDICARE, OTHER ==
[2023-02-21 15:13] LABS: BASOPHILS # (AUTO) 0.1 10^3/uL (0.0-0.1); BASOPHILS % (AUTO) 0.6 %; EOSINOPHILS # (AUTO) 0.2 10^3/uL (0.0-0.7); EOSINOPHILS % (AUTO) 1.6 %; HCT - HEMATOCRIT 47.8 % (42.0-52.0); HGB - HEMOGLOBIN 15.3 g/dL (14.0-18.0); LYMPHOCYTES # (AUTO) 1.5 10^3/uL (1.5-3.5); MEAN CORPUSCULAR HEMOGLOBIN 30.3 pg (27.0-31.0); MEAN CORPUSCULAR VOLUME 94.7 fL (80.0-94.0); MEAN PLATELET VOLUME 10.4 fL (7.4-11.4); MONOCYTES # (AUTO) 1.3 10^3/uL (0.0-1.0); MONOCYTES % (AUTO) 10.8 %; NEUTROPHILS # (AUTO) 8.7 10^3/uL (1.5-6.6); NEUTROPHILS % (AUTO) 73.3 %; PLT - PLATELET COUNT 229 10^3/uL (130-450); RED BLOOD COUNT 5.05 10^6/uL (4.70-6.10); RED CELL DISTRIBUTION WIDTH 14.1 % (12.0-15.0); WHITE BLOOD COUNT 11.8 x10^3/uL (4.8-10.8)
[2023-02-21 15:15] LABS: ALBUMIN 3.9 g/dL (3.2-5.5); ALBUMIN/GLOBULIN RATIO 1.5 (1.0-2.2); ALKALINE PHOSPHATASE 116 IU/L (42-121); ALT ALANINE AMINOTRANSFERASE 17 IU/L (10-60); AST ASPARTATE AMINOTRANSFERASE 17 IU/L (10-42); BILIRUBIN,TOTAL 0.6 mg/dL (0.2-1.0); BUN - BLOOD UREA NITROGEN 16 mg/dL (6-20); CALCIUM 9.7 mg/dL (8.5-10.3); CARBON DIOXIDE - CO2 31 mmol/L (21-32); CHLORIDE 105 mmol/L (101-111); CHOL/HDL RATIO 2.5 (<5.0); CHOLESTEROL 107 mg/dL; CREATININE 0.9 mg/dL (0.6-1.3); GFR - MDRD 81 (>89); GLUCOSE 91 mg/dL (74-104); HDL CHOLESTEROL 42 mg/dL; LDL CHOLESTEROL,CALCULATED 44 mg/dL; POTASSIUM 4.1 mmol/L (3.5-4.5); SODIUM 141 mmol/L (135-145); TOTAL PROTEIN 6.5 g/dL (6.4-8.9); TRIGLYCERIDES 106 mg/dL (48-352); VLDL CHOLESTEROL 21 mg/dL
== END 2023-02-21 09:20 | disposition home or self-care (01) ==
LOC: LAB.S 09:19
PROVIDERS: ATTEND Registered Nurse
DX: I10 Essential (primary) hypertension (principal); Z13.220 Encounter for screening for lipoid disorders
CPT/HCPCS: 36415; 80053; 80061; 83721; 85025

== ENCOUNTER 2023-05-12 11:42 | Outpatient (CLI) | payer MEDICARE, OTHER | END 2023-05-12 11:43 | disposition home or self-care (01) | LOC: LAB.S 11:42 | PROVIDERS: ATTEND Registered Nurse | DX: N40.1 Benign prostatic hyperplasia with lower urinary tract symptoms (principal) | CPT/HCPCS: 36415; 84153 ==

== ENCOUNTER 2023-10-02 13:24 | Outpatient (CLI) | payer MEDICARE, OTHER ==
--- NOTE | 2023-10-02 18:12 | Ultrasound Report ---
PROCEDURE: Carotid Doppler Complete INDICATIONS: CAROTID STENOSIS TECHNIQUE: Color and pulse Doppler interrogation was performed of both carotid systems, with image documentation and velocity measurements. COMPARISON: None. FINDINGS: Right side: Brachial blood pressure: 170/70 mm Hg. Common carotid artery peak systolic velocity: 90 cm/sec. Internal carotid artery peak systolic velocity: 70 cm/sec. Internal carotid artery end diastolic velocity: 22 cm/sec. External carotid artery peak systolic velocity: 123 cm/sec. ICA/CCA peak systolic ratio: 0.8 . Rodgers scale imaging description: Mild plaque Percent internal carotid artery stenosis: Less than 50%. Vertebral artery: Flow direction is antegrade. Left side: Brachial blood pressure: 170/69 mm Hg. Common carotid artery peak systolic velocity: 50 cm/sec. Internal carotid artery peak systolic velocity: 99 cm/sec. Internal carotid artery end diastolic velocity: 28 cm/sec. External carotid artery peak systolic velocity: 138 cm/sec. ICA/CCA peak systolic ratio: 1.9 . Rodgers scale imaging description: Mild plaque Percent internal carotid artery stenosis: Less than 50%. Vertebral artery: Flow direction is antegrade. IMPRESSION: 1. In the right internal carotid artery, there is less than 50. based on peak systolic velocity crite matheus. 2. In the left internal carotid artery, there is less than 50% based on peak systolic velocity criter ia. 3. Antegrade blood flow within the right vertebral artery. 4. Antegrade blood flow within the left vertebral artery. The estimate of stenosis included in the report of the imaging study was calculated using the [facility]-end orsed standards of carotid artery stenosis. Reviewed by: Rosemarie Mcginnis MD on 10/02/2023 6:10 PM PDT Approved by: Rosemarie Mcginnis MD on 10/02/2023 6:10 PM PDT Station ID: [id number]
== END 2023-10-02 13:25 | disposition home or self-care (01) ==
LOC: DI 13:24
PROVIDERS: ATTEND Student in an Organized Health Care Education/Training Program
DX: I65.23 Occlusion and stenosis of bilateral carotid arteries (principal)
CPT/HCPCS: 93880

== ENCOUNTER 2023-11-13 10:30 | Emergency (ER) | payer MEDICARE, OTHER ==
--- NOTE | 2023-11-13 10:59 | ED Physician Documentation ---
PD HPI MALE - Stated complaint Stated Complaint: MALE - Chief complaint Chief Complaint: General - History obtained from History obtained from: Patient - History of Present Illness Timing - onset: How many days ago (2-3) Timing - duration: Days (2-3) Timing - details: Gradual onset, Still present (and now uable to urinate) Associated symptoms: Urinary frequency (with just small amounts), Unable to urinate Similar symptoms before: Diagnosis Review of Systems Musculoskeletal: reports: Joint pain (right knee for months to a year, with xray eval of it Jan 2023. Has not seen ortho as yet, just PCP. Pain with walking and nirali going up/down steps, using other leg to lead and one step at a time. Improved with regular tylenol until lately. Some giving out at times.) PD PAST MEDICAL HISTORY - Past Medical History Cardiovascular: Hypertension, Other Respiratory: Sleep apnea Endocrine/Autoimmune: None GI: None : Benign prostate hypertrophy, Nocturia HEENT: Chronic vision loss, Chronic hearing loss Psych: Claustrophobia Musculoskeletal: Osteoarthritis Derm: None - Past Surgical History General: Cholecystectomy, Colonoscopy, Other - Present Medications Home Medications: Ambulatory Orders Medication Instructions Recorded Confirmed Cholecalciferol (Vitamin D3) 2,000 unit PO DAILY 01/21/15 11/13/23 [Vitamin D3] Lisinopril 20 mg PO DAILY 01/21/15 11/13/23 amLODIPine [Norvasc] 5 mg PO DAILY 01/21/15 11/13/23 Atorvastatin [Lipitor] 1 tab PO DAILY 11/13/23 11/13/23 HYDROcod/ACETAM 5/325 [[place]ity 5/325] 1 ea PO Q8H PRN #14 tablet 11/13/23 Meloxicam [Mobic] 7.5 mg PO BID 10 Days #20 tablet 11/13/23 Olmesartan Medoxomil 1 tab PO DAILY 11/13/23 11/13/23 Tamsulosin [Flomax] 1 cap PO DAILY 11/13/23 11/13/23 - Allergies Allergies/Adverse Reactions: Allergies Allergy/AdvReac Type Severity Reaction Status Date / Time Sulfa (Sulfonamide Allergy Hives Verified 07/24/18 13:20 Antibiotics) - Social History Does the pt smoke?: No Smoking Status: Never smoker PD ED PE NORMAL - Vitals Vital signs reviewed: Yes - General General: Alert and oriented X 3, Well developed/nourished, Other (appears in pain due to full bladder. HR up but sinus/regular. ) - Cardiac Cardiac: No murmur. No: RRR (regular but fast) - Abdomen Abdomen: Normal bowel sounds, Soft, No organomegaly, Other (fullness in suprapubic area c/w full bladder. External genitalia normal. Tender in area. ) - Derm Derm: Normal color, Warm and dry - Extremities Extremities: Other (right knee without effusion. tender medial aspect in parti cular. Looseness with valgus stress, butnot much hurting. Rotational impaction of knee causes significant sharp pain. Some grinding feeling with it, consider arthritic or if meniscal tear. ) - Neuro Neuro: No motor deficit, No sensory deficit Results - Vitals Vitals: Oxygen O2 Source Room air - Labs Labs: Laboratory Tests 11/13/23 11/13/23 11/13/23 11:30 11:44 12:15 Sodium 138 Potassium 4.0 Chloride 103 Carbon Dioxide 27 Anion Gap 8.0 BUN 21 H Creatinine 1.0 Estimated GFR (MDRD) 72 L Glucose 113 H POC Whole Bld Glucose 104 H Calcium 9.6 Total Bilirubin 0.4 AST 17 ALT 22 Alkaline Phosphatase 108 Total Protein 6.5 Albumin 4.0 Globulin 2.5 Albumin/Globulin Ratio 1.6 Lipase 11 Urine Color YELLOW Urine Clarity CLEAR Urine pH 7.0 Ur Specific [place] 1.015 Urine Protein NEGATIVE Urine Glucose (UA) NEGATIVE Urine Ketones NEGATIVE Urine Occult Blood SMALL H Urine Nitrite NEGATIVE Urine Bilirubin NEGATIVE Urine Urobilinogen 0.2 (NORMAL) Ur Leukocyte Esterase NEGATIVE Urine RBC 6-10 H Urine WBC 6-10 H Ur Squamous Epith Cells NONE SEEN Urine Bacteria Rare Urine Casts 0-2 Hyaline Casts Urine Mucus Moderate Strands Ur Microscopic Review INDICATED Urine Culture Comments NOT INDICATED PD Medical Decision Making - ED course Complexity details: reviewed results (no UTI on UA> prior xray of knee from Jan 2023 showed severe degenerative arthritis at that time. I did not see gain in repeat xray at this time. Exam is most c/w loose MCL and meniscus, with presume arthritis. No effusion. Can try brace and NSAIDs. ), re-evaluated patient (abd feeling greatly improved with catheter in and bladder decompressed. However he did start feeling lightheaded after reyes drained and BP was low at 80s systoli c. IV started and fluid bolus given with improvement. BP improved promptly and he is feeling okay. Heart monitor was NSR. Vasovagal. ), considered differential (acute complaint is poor urination for couple of days and no urine output since noon today. Has hadurinary retention once in past with catheter due to enlarged prostate. Also complains right knee pain ongoing without referral to Ortho/etc by his PCP. ), d/w patient Departure - Departure Disposition: 01 Home, Self Care Clinical Impression: Transient hypotension, Acute urinary retention, Knee pain, Vasovagal near syncope Condition: Stable Record reviewed to determine appropriate education?: Yes Instructions: ED Meniscal Injury Knee Poss, ED Retention Urinary Male Follow-Up: Kandace Fuentes MD [Primary Care Provider] - Arnoldo Nichols MD [Provider Admit Priv/Credential] - [facility] [Provider Group] Prescriptions: Meloxicam [Mobic] 7.5 mg PO BID 10 Days #20 tablet HYDROcod/ACETAM 5/325 [Amity 5/325] 1 ea PO Q8H PRN #14 tablet PRN Reason: Pain Comments: Have the catheter in place. Call the urology office Tuesday for follow-up appointment time. Continue usual medicines, in particular the Flomax. There is no signs of infection to the urine. Your kidney function is good. Regarding your knee, I would use the hinged knee brace when up and around to help support and diminish rotational movement and from bending too much. I think you are having either an adequate cartilage or some injury to the cartilage/meniscus as the cause of your pain. The knee brace should help with this but I would certainly have you follow-up with orthopedics for more definitive evaluation. Call their as well on Tuesday for an appointment. Return as needed. I prescribed a anti-inflammatory to help with some of the knee pain assuming some element of arthritis or inflammation. Add pain medicine if needed to help for worse pain at times. I sent prescriptions to your preferred pharmacy. Forms: PCP List Discharge Date/Time: 11/13/23 14:26
[2023-11-13] MEDS: LIDOCAINE 2% URO-JET 5 ML SYRINGE UR STA (11:12)
[2023-11-13 11:51] LABS: BILIRUBIN,URINE NEGATIVE (NEGATIVE); GLUCOSE, URINE (UA) NEGATIVE (NEGATIVE); KETONES,URINE (UA) NEGATIVE (NEGATIVE); LEUKOCYTE ESTERASE, URINE NEGATIVE (NEGATIVE); NITRITE,URINE NEGATIVE (NEGATIVE); OCCULT BLOOD,URINE SMALL (NEGATIVE); PROTEIN,URINE NEGATIVE (NEGATIVE); UROBILINOGEN,URINE 0.2 (NORMAL) E.U./dL (NORMAL)
[2023-11-13 11:53] LABS: CLARITY,URINE CLEAR (CLEAR)
[2023-11-13] MEDS: SODIUM CHLORIDE 0.9% 1,000 ML IV STA (12:00)
[2023-11-13 12:12] LABS: ALBUMIN/GLOBULIN RATIO 1.6 (1.0-2.2); BILIRUBIN,TOTAL 0.4 mg/dL (0.2-1.0); CALCIUM 9.6 mg/dL (8.5-10.3); TOTAL PROTEIN 6.5 g/dL (6.4-8.9)
[2023-11-13 12:22] LABS: BACTERIA,URINE Rare /HPF (None Seen); CASTS, URINE 0-2 Hyaline Casts /LPF; MUCUS,URINE Moderate Strands; SQUAMOUS EPITHELIAL CELL,UR NONE SEEN (<= Few)
[2023-11-13 14:13] VITALS: BP 132/87; O2SAT 100
== END 2023-11-13 14:26 | disposition home or self-care (01) ==
LOC: ED 10:30
DX: I95.89 Other hypotension (principal); R55 Syncope and collapse; R33.9 Retention of urine, unspecified; M25.561 Pain in right knee; I10 Essential (primary) hypertension; G47.30 Sleep apnea, unspecified
CPT/HCPCS: 36415; 80053; 81001; 81003; 83690; 87086; 96360; 99284

== ENCOUNTER 2023-11-21 12:22 | Outpatient (CLI) | payer MEDICARE, OTHER | END 2023-11-21 23:59 | disposition critical access hospital (66) | LOC: EMS 12:22 | DX: R47.89 Other speech disturbances (principal); R26.81 Unsteadiness on feet; R53.1 Weakness; I95.9 Hypotension, unspecified | CPT/HCPCS: A0425; A0427 ==

== ENCOUNTER 2023-11-21 13:03 | Inpatient (IN) | payer MEDICARE, OTHER ==
--- NOTE | 2023-11-21 13:16 | ED Physician Documentation ---
History of Present Illness - Stated complaint Stated Complaint: WEAKNESS - Chief complaint Chief Complaint: General - History obtained from History obtained from: Patient, EMS - Additonal information Additional information: 83-year-old gentleman with history of strokes, carotid endarterectomies bilaterally, ongoing tobacco use, recent visit 8 days ago for urinary retention presents for about 3 days of generalized weakness. Sounds like yesterday his Jones became disconnected he was draining it into a garbage can but then went to urgent care to have the bag replaced. He was noted to be hypotensive for EMS with blood pressure in the 80/60 range. PD PAST MEDICAL HISTORY - Past Medical History Past Medical History: Yes Cardiovascular: Hypertension, Other Respiratory: Sleep apnea Endocrine/Autoimmune: None GI: None : Benign prostate hypertrophy, Nocturia HEENT: Chronic vision loss, Chronic hearing loss Psych: Claustrophobia Musculoskeletal: Osteoarthritis Derm: None - Past Surgical History Past Surgical History: Yes General: Cholecystectomy, Colonoscopy, Other - Present Medications Home Medications: Ambulatory Orders Medication Instructions Recorded Confirmed Cholecalciferol (Vitamin D3) 2,000 unit PO DAILY 01/21/15 11/13/23 [Vitamin D3] Lisinopril 20 mg PO DAILY 01/21/15 11/13/23 amLODIPine [Norvasc] 5 mg PO DAILY 01/21/15 11/13/23 Atorvastatin [Lipitor] 1 tab PO DAILY 11/13/23 11/13/23 HYDROcod/ACETAM 5/325 [[place] 5/325] 1 ea PO Q8H PRN #14 tablet 11/13/23 Meloxicam [Mobic] 7.5 mg PO BID 10 Days #20 tablet 11/13/23 Olmesartan Medoxomil 1 tab PO DAILY 11/13/23 11/13/23 Tamsulosin [Flomax] 1 cap PO DAILY 11/13/23 11/13/23 - Allergies Allergies/Adverse Reactions: Allergies Allergy/AdvReac Type Severity Reaction Status Date / Time Sulfa (Sulfonamide Allergy Hives Verified 11/21/23 13:08 Antibiotics) - Social History Does the pt smoke?: Yes Smoking Status: Current every day smoker Does the pt drink ETOH?: Yes Does the pt have substance abuse?: No - Immunizations Immunizations are current?: Yes PD ED PE NORMAL - Vitals Vital signs reviewed: Yes - General General: Alert and oriented X 3, No acute distress - HEENT HEENT: PERRL, EOMI - Neck Neck: Supple, no meningeal sign, No bony TTP - Cardiac Cardiac: RRR, No murmur - Respiratory Respiratory: No respiratory distress, Clear bilaterally - Abdomen Abdomen: Non tender - Back Back: No CVA TTP, No spinal TTP - Derm Derm: Normal color, Warm and dry - Neuro Neuro: Alert and oriented X 3, assembler camper 2-12 intact, No motor deficit, No sensory deficit, Normal speech, Other (Right hand firing pin gauger strength is mildly diminished but that seems to be related to arthritic hands as opposed to a primary neurologic issue.) Eye Opening: Spontaneous Motor: Obeys Commands Verbal: Oriented GCS Score: 15 - Psych Psych: Normal mood, Normal affect Results - Vitals Vitals: Vital Signs - 24 hr 11/21/23 13:08 Temperature 36.8 C Heart Rate 81 Respiratory 18 Rate Blood Pressure 137/93 H O2 Saturation 96 Oxygen O2 Source Room air - EKG (time done) 1338 EKG releavant findings:: EKG personally interpreted by author of this note. Relevant findings are: Rate: Rate (enter#) (74) Rhythm: NSR Intervals: RBBB, Other (LPFB) Ischemia: Normal ST segments Computer interpretation: Agree with computer - Labs Labs: Laboratory Tests 11/21/23 11/21/23 11/21/23 13:28 13:36 13:36 WBC 22.7 H RBC 4.67 L Hgb 14.8 Hct 45.2 MCV 96.8 H MCH 31.7 H MCHC 32.7 RDW 13.7 Plt Count 198 MPV 9.3 Sodium 138 Potassium 4.4 Chloride 105 Carbon Dioxide 26 Anion Gap 7.0 BUN 22 H Creatinine 1.1 Estimated GFR (MDRD) 64 L Glucose 91 Lactic Acid Calcium 9.3 Magnesium 1.7 Total Bilirubin 0.7 AST 15 ALT 17 Alkaline Phosphatase 95 Total Protein 6.3 L Albumin 3.8 Globulin 2.5 Albumin/Globulin Ratio 1.5 Urine Color YELLOW Urine Clarity CLOUDY Urine pH 6.0 Ur Specific [place] 1.020 Urine Protein 100 H Urine Glucose (UA) NEGATIVE Urine Ketones TRACE Urine Occult Blood LARGE H Urine Nitrite POSITIVE H Urine Bilirubin SMALL H Urine Urobilinogen 1 (NORMAL) Ur Leukocyte Esterase MODERATE H Ur Microscopic Review INDICATED Urine Culture Comments Not Reportable 11/21/23 13:36 WBC RBC Hgb Hct MCV MCH MCHC RDW Plt Count MPV Sodium Potassium Chloride Carbon Dioxide Anion Gap BUN Creatinine Estimated GFR (MDRD) Glucose Lactic Acid 2.4 H Calcium Magnesium Total Bilirubin AST ALT Alkaline Phosphatase Total Protein Albumin Globulin Albumin/Globulin Ratio Urine Color Urine Clarity Urine pH Ur Specific [place] Urine Protein Urine Glucose (UA) Urine Ketones Urine Occult Blood Urine Nitrite Urine Bilirubin Urine Urobilinogen Ur Leukocyte Esterase Ur Microscopic Review Urine Culture Comments PD Medical Decision Making - ED course ED course: This is an 83-year-old gentleman with recent Jones placement, it was unhooked for a couple of days and he was draining into a garbage can. Now he has a bag again but he presents with weakness and prehospital hypotension. I reviewed Dr. Cho's note from last week it looks like he was transiently hypotensive then 2. Here he really does not have any other complaints. With the exception of he would like to take his catheter out and do a voiding trial. That not unreasonable since he will be here for a time for testing. He does not appear septic but that would be 1 because of hypotension. Dehydration or his medications could cause that to, he is on an WILMA inhibitor, amlodipine, Flomax. Workup in the emergency department demonstrates a white count of 22,000. Note made that he chronically has a mild leukocytosis but usually in the range of 11 or so. He has intact renal function with pyuria and a lactic acidosis. This is worrisome for sepsis And he is cultured up and I spoke with the hospitalist for admission at 2:14 PM. He received for Rocephin for his UTI with sepsis. Departure - Departure Disposition: [facility] DC/Xfer Clinical Impression: Sepsis, UTI (urinary tract infection) Condition: Serious Record reviewed to determine appropriate education?: Yes Forms: PCP List
[2023-11-21] MEDS: SODIUM CHLORIDE 0.9% 1,000 ML IV STA (13:31)
[2023-11-21 13:41] LABS: BASOPHILS % (AUTO) 0.4 %; EOSINOPHILS % (AUTO) 0.5 %; HCT - HEMATOCRIT 45.2 % (42.0-52.0); HGB - HEMOGLOBIN 14.8 g/dL (14.0-18.0); LYMPHOCYTES % (AUTO) 6.1 %; MEAN CORPUSCULAR HEMOGLOBIN 31.7 pg (27.0-31.0); MEAN CORPUSCULAR HGB CONC 32.7 g/dL (32.0-36.0); MEAN CORPUSCULAR VOLUME 96.8 fL (80.0-94.0); MEAN PLATELET VOLUME 9.3 fL (7.4-11.4); MONOCYTES % (AUTO) 10.5 %; NEUTROPHILS % (AUTO) 81.8 %; PLT - PLATELET COUNT 198 10^3/uL (130-450); RED BLOOD COUNT 4.67 10^6/uL (4.70-6.10); RED CELL DISTRIBUTION WIDTH 13.7 % (12.0-15.0); WHITE BLOOD COUNT 22.7 x10^3/uL (4.8-10.8)
[2023-11-21 13:44] LABS: ABNORMAL LYMPHS % (MANUAL) 0 %
[2023-11-21 13:54] LABS: BILIRUBIN,URINE SMALL (NEGATIVE); GLUCOSE, URINE (UA) NEGATIVE (NEGATIVE); KETONES,URINE (UA) TRACE mg/dL (NEGATIVE); LEUKOCYTE ESTERASE, URINE MODERATE (NEGATIVE); NITRITE,URINE POSITIVE (NEGATIVE); OCCULT BLOOD,URINE LARGE (NEGATIVE); PROTEIN,URINE 100 mg/dL (NEGATIVE); UROBILINOGEN,URINE 1 (NORMAL) E.U./dL (NORMAL)
[2023-11-21 13:55] LABS: CLARITY,URINE CLOUDY (CLEAR)
[2023-11-21 13:55] LABS: ALBUMIN 3.8 g/dL (3.2-5.5); ALBUMIN/GLOBULIN RATIO 1.5 (1.0-2.2); BILIRUBIN,TOTAL 0.7 mg/dL (0.2-1.0); CALCIUM 9.3 mg/dL (8.5-10.3); CREATININE 1.1 mg/dL (0.6-1.3); MAGNESIUM 1.7 mg/dL (1.7-2.3); POTASSIUM 4.4 mmol/L (3.5-4.5); TOTAL PROTEIN 6.3 g/dL (6.4-8.9)
[2023-11-21] MEDS: cefTRIAXone 1 GM VIAL IVP STA (14:09)
[2023-11-21 14:11] LABS: BAND NEUTROPHILS % (MANUAL) 8 %; EOSINOPHILS # (MANUAL) 0.2 10^3/uL (0-0.7); LYMPHOCYTES # (MANUAL) 1.8 10^3/uL (1.5-3.5); LYMPHOCYTES % (MANUAL) 7 %; MONOCYTES # (MANUAL) 2.3 10^3/uL (0.0-1.0); NEUTROPHILS # (MANUAL) 18.4 10^3/uL (1.5-6.6); REACTIVE LYMPHS % (MANUAL) 1 %
[2023-11-21 14:12] LABS: DIFFERENTIAL COMMENT MANUAL DIFFERENTIAL
[2023-11-21 14:24] LABS: BACTERIA,URINE Many /HPF (None Seen); EPITHELIAL CELLS,UR FEW Transitional /HPF (<= Few); MUCUS,URINE Moderate Strands; RBC,URINE TNTC /HPF (0-5); SQUAMOUS EPITHELIAL CELL,UR NONE SEEN (<= Few); WBC CLUMPS,URINE PRESENT; WBC,URINE >25 /HPF (0-3)
--- NOTE | 2023-11-21 14:31 | CT Report ---
PROCEDURE: Head WO INDICATIONS: gen weak TECHNIQUE: Noncontrast 4.5 mm thick angled axial sections acquired from the foramen magnum to the vertex. For r adiation dose reduction, the following was used: automated exposure control, adjustment of mA and/or kV according to patient size. COMPARISON: None. FINDINGS: Image quality: Excellent. CSF spaces: Basal cisterns are patent. No extra-axial fluid collections. Ventricles are normal in size and shape. Brain: No midline shift. No intracranial masses or hemorrhage. Rodgers-white matter interface is norm al. Intracranial carotid calcifications. Age-related volume loss and moderate to severe small vessel ischemic change. Skull and face: Calvarium and visualized facial bones are intact, without suspicious lesions. Sinuses: Visualized sinuses and mastoids are clear. IMPRESSION: 1. No acute intracranial process. 2. Age-related volume loss and moderate to severe small vessel ischemic change. Reviewed by: Jorge Huitron MD on 11/21/2023 2:30 PM PDT Approved by: Jorge Huitron MD on 11/21/2023 2:30 PM PDT Station ID: [id number]
[2023-11-21] MEDS ORDERED: SODIUM CHLORIDE FLUSH 0.9% 10 ML SYRINGE IVP PRN (14:52)
[2023-11-21] MEDS ORDERED: ONDANSETRON ODT 4 MG TABLET TL PRN (14:52)
[2023-11-21] MEDS ORDERED: ONDANSETRON 4 MG/2 ML VIAL IVP PRN (14:52)
--- NOTE | 2023-11-21 15:03 | HISTORY & PHYSICAL EXAMINATION ---
Chief Complaint - Chief Complaint Chief Complaint: Generalized weakness x 1 day History of Present Illness - Admitted From Admitted From:: Emergency department - History Obtained From Records Reviewed: Yes History obtained from: Charts and ED staff and patient - History of Present Illness HPI Comment/Other: This is an 83-year-old male with past medical history of CVA bilateral carotid endarterectomy hypertension tobacco abuse COPD on no home O2 BPH with recent urinary retention and Jones insertion 8 days ago while patient about 3 days ago developed generalized weakness but yesterday patient Jones became disconnected as he was draining it into the garbage can and then went to the urgent care where patient had the bag replaced. Today called paramedics as patient was found to be significantly weak and by linotype mechanic patient was found to have hypotension with blood pressure of 80/60 given fluids with good response brought into ER where patient was found to have a positive UA and leukocytosis being admitted for urosepsis. At this time patient denies any headache eye pain ear pain chest pain shortness of breath fevers chills nausea vomiting diarrhea constipation GI bleed bleed denies any focal weakness admits to generalized weakness and a further provide patient a bit confused initially currently awake oriented x 3 following commands patient denies urinary frequency or dysuria has had Jones. History - Past Medical History Cardiovascular: reports: Hypertension, Other Respiratory: reports: Sleep apnea Endocrine/Autoimmune: reports: None GI: reports: None : reports: Benign prostate hypertrophy, Nocturia HEENT: reports: Chronic vision loss, Chronic hearing loss Psych: reports: Claustrophobia Musculoskeletal: reports: Osteoarthritis Derm: reports: None MRSA Hx?: No - Past Surgical History General: reports: Cholecystectomy, Colonoscopy, Other Meds/Allgy - Home Medications Home Medications: Ambulatory Orders Medication Instructions Recorded Confirmed Cholecalciferol (Vitamin D3) 2,000 unit PO DAILY 01/21/15 11/13/23 [Vitamin D3] Lisinopril 20 mg PO DAILY 01/21/15 11/13/23 amLODIPine [Norvasc] 5 mg PO DAILY 01/21/15 11/13/23 HYDROcod/ACETAM 5/325 [[place] 5/325] 1 ea PO Q8H PRN #14 tablet 11/13/23 Meloxicam [Mobic] 7.5 mg PO BID 10 Days #20 tablet 11/13/23 Olmesartan Medoxomil 1 tab PO DAILY 11/13/23 11/13/23 Tamsulosin [Flomax] 1 cap PO DAILY 11/13/23 11/13/23 Atorvastatin Calcium [Lipitor] 80 mg PO HS 11/21/23 oxyBUTYnin chloride [Oxybutynin 5 mg PO TID 11/21/23 Chloride] - Allergies Allergies/Adverse Reactions: Allergies Allergy/AdvReac Type Severity Reaction Status Date / Time Sulfa (Sulfonamide Allergy Hives Verified 11/21/23 13:08 Antibiotics) Review of Systems - Constitutional Constitutional: reports: Fatigue, Weakness - Ears, Nose & Throat Ears, Nose & Throat: reports: Hearing loss - Cardiovascular Cariovascular: reports: Lightheadedness. denies: Chest pain - Respiratory Respiratory: denies: SOB at rest - Gastrointestinal Gastrointestinal: denies: Abdominal pain, Diarrhea, Nausea, Vomiting - Genitourinary Genitourinary: denies: Dysuria, Frequency, Urgency, Hematuria - Neurological Neurological: reports: General weakness Prior Level of Functionality: Ambulatory with a brace Exam - Vital Signs Reviewed Vital Signs: Yes Vital Signs: Vital Signs x48h Temp Pulse Resp BP Pulse Ox 11/21/23 13:08 36.8 C 81 18 137/93 H 96 - Physical Exam General Appearance: positive: No acute distress Eyes Bilateral: positive: PERRL ENT: positive: Pharynx nml Neck: positive: Trachea midline Respiratory: positive: No respiratory distress, Breath sounds nml Cardiovascular: positive: Regular rate & rhythm, No murmur Abdomen: positive: Non-tender, Nml bowel sounds, No distention Skin: positive: Warm Extremities: positive: No pedal edema Neurologic/Psychiatric: positive: Oriented x3 Sepsis Event Note (H) - Evaluation Current Stage of Sepsis: Severe sepsis Possible source of Sepsis: positive: Genitourinary Sepsis Associated Organ Dysfunction: Hypotension - Sepsis Criteria Sepsis Criteria: WBC count greater than 12,000 or less than 4000, SBP drop more than 40mHg, Metabolic: lactate > 2 mmol/L Conclusion/Plan - Problem List (1) Sepsis Conclusion/Plan: Patient with initial hypotension of 80/60, status post IV hydration currently normotensive Continue IV hydration Initiate IV ceftriaxone Obtain blood culture 2 urine culture Obtain inflammatory markers Sepsis likely secondary to tract Discussed with patient at bedside regarding CODE STATUS patient at this time wants to be a full code. (2) UTI (urinary tract infection) Conclusion/Plan: Patient with history of BPH and recent urinary retention status post Jones 8 days ago with Jones bag coming out repeat bag replaced though currently with a positive UA will be further admitted to the hospital for UTI associated sepsis we will continue with ceftriaxone, patient has opted for Jones trials and DC of Jones which is currently done so we will continue with patient's Flomax and increase the dose monitor with every shift bladder scan may need straight cath. Follow-up on urine culture and blood culture. (3) Hypertension Conclusion/Plan: Will continue with patient home dose Norvasc/lisinopril, monitor creatinine (4) BPH (benign prostatic hyperplasia) Conclusion/Plan: Continue with Flomax to increase the dose, keep patient off Jones, continue bladder scan every shift may need straight cath. Patient has outpatient urology referrals. (5) CVA (cerebral vascular accident) Conclusion/Plan: Patient with history of CVA will continue home dose statin 80 mg p.o. nightly atorvastatin and add an aspirin - Lab Results Fish Bones: 11/21/23 13:36 11/21/23 13:36 - EKG Results EKG Interpreted Independently: Yes Core Measures - Anticipated LOS I expect patient to be DC'd or transferred within 96 hours.: Yes - DVT/VTE - Prophylaxis VTE/DVT Device ordered at admit?: No VTE/DVT Prophylaxis med ordered at admit?: Yes
[2023-11-21] MEDS: SODIUM CHLORIDE FLUSH 0.9% 10 ML SYRINGE IVP SCH (16:26)
[2023-11-21] MEDS: SODIUM CHLORIDE 0.9% 1,000 ML IV SCH (16:26)
--- NOTE | 2023-11-21 16:27 | PHARMACY PROGRESS NOTE ---
- Best Possible Medication History Admit Date and Time: 11/21/23 1526 Processed by: Pharmacy Medications reviewed in ED?: No Medication History completed: Yes Patient Interview: Completed Secondary Source(s): Spouse/Significant other, Pharmacy records, Insurance records As the person ultimately responsible for medication therapy, providers are able to order a medication from an existing home medication list in [facility] via the "Reconcile Routine" prior to Confirmation of that medication by residential support specialist. Such practice is discouraged except when the physician, in their clinical judgment, deems that a medical need exists for a medication without regard to previous use.
[2023-11-21] MEDS: cefTRIAXone 1 GM in SODIUM CHLORIDE 0.9% MINIBAG 100 ML IV SCH (21:10)
[2023-11-21] MEDS: TAMSULOSIN 0.4 MG CAPSULE PO SCH (21:11)
[2023-11-21] MEDS: HEPARIN 5,000 UNIT/ML VIAL SUBQ SCH (21:14)
[2023-11-22] MEDS: HYDROcod/ACETAM 5/325 MG TABLET PO PRN (01:20)
[2023-11-22 08:03] LABS: BASOPHILS # (AUTO) 0.1 10^3/uL (0.0-0.1); BASOPHILS % (AUTO) 0.4 %; EOSINOPHILS # (AUTO) 0.1 10^3/uL (0.0-0.7); EOSINOPHILS % (AUTO) 0.6 %; HCT - HEMATOCRIT 38.5 % (42.0-52.0); HGB - HEMOGLOBIN 12.7 g/dL (14.0-18.0); LYMPHOCYTES # (AUTO) 1.4 10^3/uL (1.5-3.5); LYMPHOCYTES % (AUTO) 9.8 %; MEAN CORPUSCULAR HEMOGLOBIN 31.3 pg (27.0-31.0); MEAN CORPUSCULAR VOLUME 94.8 fL (80.0-94.0); MEAN PLATELET VOLUME 9.1 fL (7.4-11.4); MONOCYTES # (AUTO) 1.7 10^3/uL (0.0-1.0); MONOCYTES % (AUTO) 11.8 %; PLT - PLATELET COUNT 173 10^3/uL (130-450); RED BLOOD COUNT 4.06 10^6/uL (4.70-6.10); RED CELL DISTRIBUTION WIDTH 13.6 % (12.0-15.0); WHITE BLOOD COUNT 14.3 x10^3/uL (4.8-10.8)
[2023-11-22 08:05] LABS: SLIDE REVIEW? Indicated
[2023-11-22 08:20] LABS: CALCIUM 8.5 mg/dL (8.5-10.3); CREATININE 0.8 mg/dL (0.6-1.3); POTASSIUM 3.6 mmol/L (3.5-4.5)
--- NOTE | 2023-11-22 08:27 | PROVIDER PROGRESS NOTE ---
Subjective - Prog Note Date Prog Note Date: 11/22/23 Prog Note Time: 08:22 - Subjective Subjective: Patient is supine in bed currently no acute distress has been catheterized 4 times overnight Current Medications - Current Medications Current Medications: Active Medications Acetaminophen (Acetaminophen 325 Mg Tablet) 650 mg PO Q4HR PRN PRN Reason: Pain 1 to 4, or Fever Hydrocodone Bitart/Acetaminophen (Hydrocod/Acetam 5/325 Mg Tablet) 1 tab PO Q8H PRN PRN Reason: PAIN >8 Last Admin: 11/22/23 01:20 Dose: 1 tab Amlodipine Besylate (Amlodipine 5 Mg Tablet) 5 mg PO DAILY [facility] Atorvastatin Calcium (Atorvastatin 40 Mg Tablet) 80 mg PO DAILY [facility] Heparin Sodium (Porcine) (Heparin 5,000 Unit/Ml Vial) 5,000 unit SUBQ BID [facility] Last Admin: 11/21/23 21:14 Dose: 5,000 unit Sodium Chloride (Normal Saline 0.9%) 1,000 mls @ 100 mls/hr IV .Q10H [facility] Last Admin: 11/22/23 03:18 Dose: 100 mls/hr Ceftriaxone Sodium 1 gm/ (Sodium Chloride) 100 mls @ 200 mls/hr IV BID [facility] Last Infusion: 11/22/23 07:28 Dose: Infused Lisinopril (Lisinopril 20 Mg Tablet) 20 mg PO DAILY [facility] Ondansetron HCl (Ondansetron 4 Mg/2 Ml Vial) 4 mg IVP Q6HR PRN PRN Reason: Nausea / Vomiting Ondansetron HCl (Ondansetron Odt 4 Mg Tablet) 4 mg TL Q6HR PRN PRN Reason: Nausea / Vomiting Sodium Chloride (Sodium Chloride Flush 0.9% 10 Ml Syringe) 10 ml IVP PRN PRN PRN Reason: NEEDED PER PROVIDER ORDERS Sodium Chloride (Sodium Chloride Flush 0.9% 10 Ml Syringe) 10 ml IVP 0100,0900,1700 [facility] Last Admin: 11/22/23 00:31 Dose: Not Given Tamsulosin HCl (Tamsulosin 0.4 Mg Capsule) 0.4 mg PO BID [facility] Last Admin: 11/21/23 21:11 Dose: 0.4 mg Cholecalciferol (Vitamin D3) [Vitamin D3] 1,000 unit PO DAILY 01/21/15 amLODIPine [Norvasc] 5 mg PO DAILY 01/21/15 Olmesartan Medoxomil 1 tab PO HS 11/13/23 Tamsulosin [Flomax] 1 cap PO DAILY 11/13/23 Aspirin EC [Ecotrin] 81 mg PO DAILY 11/21/23 Atorvastatin Calcium [Lipitor] 80 mg PO HS 11/21/23 Loratadine [All Day Allergy Relief] 10 mg PO DAILY 11/21/23 Thiamine [Vitamin B-1] 100 mg PO DAILY 11/21/23 oxyBUTYnin chloride [Oxybutynin Chloride] 5 mg PO TID 11/21/23 Objective - Vital Signs/Intake & Output Reviewed Vital Signs: Yes Vital Signs: Vital Signs x48h Temp Pulse Resp BP Pulse Ox 11/22/23 04:36 37.3 C 92 20 97/77 92 Intake & Output: Intake & Output 11/19/23 11/20/23 11/21/23 11/22/23 23:59 23:59 23:59 23:59 Intake Total 1300 1200 Output Total 1695 1225 Balance -395 -25 - Objective General Appearance: positive: No acute distress Eyes Bilateral: positive: PERRL ENT: positive: Pharynx nml Neck: positive: Trachea midline Respiratory: positive: No respiratory distress, Breath sounds nml Cardiovascular: positive: Regular rate & rhythm, No murmur Abdomen: positive: Non-tender, Nml bowel sounds, No distention. negative: Guarding, Rebound Skin: positive: Warm Extremities: positive: No pedal edema Neurologic/Psychiatric: positive: Oriented x3 - Lab Results Fish Bones: 11/22/23 07:56 11/22/23 07:56 Other Labs: Lab Results x24hrs 11/22/23 11/22/23 11/21/23 Range/Units 07:56 07:56 13:36 WBC 14.3 H (4.8-10.8) x10^3/uL RBC 4.06 L (4.70-6.10) 10^6/uL Hgb 12.7 L (14.0-18.0) g/dL Hct 38.5 L (42.0-52.0) % MCV 94.8 H (80.0-94.0) fL MCH 31.3 H (27.0-31.0) pg MCHC 33.0 (32.0-36.0) g/dL RDW 13.6 (12.0-15.0) % Plt Count 173 (130-450) 10^3/uL MPV 9.1 (7.4-11.4) fL Neut # (Auto) Lymph # (Auto) Green # (Auto) Eos # (Auto) Baso # (Auto) Absolute Nucleated RBC Total Counted Band Neuts % (Manual) (0 - 10) % Reactive Lymphs % (Man) % Abnorm Lymph % (Manual) % Nucleated RBC % Neutrophils # (Manual) (1.5-6.6) 10^3/uL Lymphocytes # (Manual) (1.5-3.5) 10^3/uL Monocytes # (Manual) (0.0-1.0) 10^3/uL Eosinophils # (Manual) (0-0.7) 10^3/uL Basophils # (Manual) (0-0.1) 10^3/uL Differential Comment Manual Slide Review Indicated Sodium 138 (135-145) mmol/L Potassium 3.6 (3.5-4.5) mmol/L Chloride 107 (101-111) mmol/L Carbon Dioxide 25 (21-32) mmol/L Anion Gap 6.0 (6-13) BUN 15 (6-20) mg/dL Creatinine 0.8 (0.6-1.3) mg/dL Estimated GFR (MDRD) 93 (>89) Glucose 82 (74-104) mg/dL Lactic Acid 2.4 H (0.5-2.2) mmol/L Calcium 8.5 (8.5-10.3) mg/dL Magnesium (1.7-2.3) mg/dL Total Bilirubin (0.2-1.0) mg/dL AST (10-42) IU/L ALT (10-60) IU/L Alkaline Phosphatase (42-121) IU/L Total Protein (6.4-8.9) g/dL Albumin (3.2-5.5) g/dL Globulin (2.1-4.2) g/dL Albumin/Globulin Ratio (1.0-2.2) Urine Color Urine Clarity (CLEAR) Urine pH (5.0-7.5) PH Ur Specific [place] (1.002-1.030) Urine Protein (NEGATIVE) mg/dL Urine Glucose (UA) (NEGATIVE) mg/dL Urine Ketones (NEGATIVE) mg/dL Urine Occult Blood (NEGATIVE) Urine Nitrite (NEGATIVE) Urine Bilirubin (NEGATIVE) Urine Urobilinogen (NORMAL) E.U./dL Ur Leukocyte Esterase (NEGATIVE) Urine RBC (0-5) /HPF Urine WBC (0-3) /HPF Urine WBC Clumps Ur Epithelial Cells (<= Few) /HPF Ur Squamous Epith Cells (<= Few) Urine Bacteria (None Seen) /HPF Urine Mucus Ur Microscopic Review Urine Culture Comments 11/21/23 11/21/23 11/21/23 Range/Units 13:36 13:36 13:28 WBC 22.7 H (4.8-10.8) x10^3/uL RBC 4.67 L (4.70-6.10) 10^6/uL Hgb 14.8 (14.0-18.0) g/dL Hct 45.2 (42.0-52.0) % MCV 96.8 H (80.0-94.0) fL MCH 31.7 H (27.0-31.0) pg MCHC 32.7 (32.0-36.0) g/dL RDW 13.7 (12.0-15.0) % Plt Count 198 (130-450) 10^3/uL MPV 9.3 (7.4-11.4) fL Neut # (Auto) Not Reportable Lymph # (Auto) Not Reportable [place] # (Auto) Not Reportable Eos # (Auto) Not Reportable Baso # (Auto) Not Reportable Absolute Nucleated RBC Not Reportable Total Counted 100 Band Neuts % (Manual) 8 (0 - 10) % Reactive Lymphs % (Man) 1 % Abnorm Lymph % (Manual) 0 % Nucleated RBC % Not Reportable Neutrophils # (Manual) 18.4 H (1.5-6.6) 10^3/uL Lymphocytes # (Manual) 1.8 (1.5-3.5) 10^3/uL Monocytes # (Manual) 2.3 H (0.0-1.0) 10^3/uL Eosinophils # (Manual) 0.2 (0-0.7) 10^3/uL Basophils # (Manual) 0.0 (0-0.1) 10^3/uL Differential Comment MANUAL DIFFERENTIAL Manual Slide Review Sodium 138 (135-145) mmol/L Potassium 4.4 (3.5-4.5) mmol/L Chloride 105 (101-111) mmol/L Carbon Dioxide 26 (21-32) mmol/L Anion Gap 7.0 (6-13) BUN 22 H (6-20) mg/dL Creatinine 1.1 (0.6-1.3) mg/dL Estimated GFR (MDRD) 64 L (>89) Glucose 91 (74-104) mg/dL Lactic Acid (0.5-2.2) mmol/L Calcium 9.3 (8.5-10.3) mg/dL Magnesium 1.7 (1.7-2.3) mg/dL Total Bilirubin 0.7 (0.2-1.0) mg/dL AST 15 (10-42) IU/L ALT 17 (10-60) IU/L Alkaline Phosphatase 95 (42-121) IU/L Total Protein 6.3 L (6.4-8.9) g/dL Albumin 3.8 (3.2-5.5) g/dL Globulin 2.5 (2.1-4.2) g/dL Albumin/Globulin Ratio 1.5 (1.0-2.2) Urine Color YELLOW Urine Clarity CLOUDY (CLEAR) Urine pH 6.0 (5.0-7.5) PH Ur Specific [place] 1.020 (1.002-1.030) Urine Protein 100 H (NEGATIVE) mg/dL Urine Glucose (UA) NEGATIVE (NEGATIVE) mg/dL Urine Ketones TRACE (NEGATIVE) mg/dL Urine Occult Blood LARGE H (NEGATIVE) Urine Nitrite POSITIVE H (NEGATIVE) Urine Bilirubin SMALL H (NEGATIVE) Urine Urobilinogen 1 (NORMAL) (NORMAL) E.U./dL Ur Leukocyte Esterase MODERATE H (NEGATIVE) Urine RBC TNTC H (0-5) /HPF Urine WBC >25 H (0-3) /HPF Urine WBC Clumps PRESENT Ur Epithelial Cells FEW Transitional (<= Few) /HPF Ur Squamous Epith Cells NONE SEEN (<= Few) Urine Bacteria Many H (None Seen) /HPF Urine Mucus Moderate Strands Ur Microscopic Review INDICATED Urine Culture Comments INDICATED ABX Reporting Has patient been on IV antibiotics over the past 48 hours?: Yes Sepsis Event Note (H) - Evaluation Current Stage of Sepsis: Severe sepsis Possible source of Sepsis: positive: Genitourinary - Sepsis Criteria Sepsis Criteria: WBC count greater than 12,000 or less than 4000, SBP drop more than 40mHg, Metabolic: lactate > 2 mmol/L Assessment/Plan - Problem List (1) Sepsis Impression: Patient with initial hypotension of 80/60, status post IV hydration currently normotensive Continue IV hydration Continue IV ceftriaxone Follow-upblood culture Follow-up urine culture Obtain inflammatory markers Sepsis likely secondary to tract CODE STATUS patient at this time wants to be a full code. (2) UTI (urinary tract infection) Conclusion/Plan: Patient with history of BPH and recent urinary retention status post Jones 8 days ago with Jones bag coming out repeat bag replaced though currently with a positive UA will be further admitted to the hospital for UTI associated sepsis we will continue with ceftriaxone, patient has opted for Jones trials and DC of Jones which is currently done so we will continue with patient's Flomax and increase the dose monitor with every shift bladder scan may need straight cath. Follow-up on urine culture and blood culture. Patient status post multiple catheterization, likely needs Jones today, Follow- up urologist as out pt (3) Hypertension Conclusion/Plan: Will continue with patient home dose Norvasc/lisinopril, monitor creatinine (4) BPH (benign prostatic hyperplasia) Conclusion/Plan: Continue with Flomax May need Jones today, follow-up with urology as an outpatient (5) CVA (cerebral vascular accident) Conclusion/Plan: Patient with history of CVA will continue home dose statin 80 mg p.o. nightly atorvastatin and add an aspirin DVT phylaxis: Subcu heparin
[2023-11-22 08:31] LABS: PLATELET ESTIMATE, MANUAL NORMAL (130-450,000) (NORMAL); PLATELET MORPHOLOGY NORMAL APPEARANCE (NORMAL); RBC MORPHOLOGY (MULTIPLE) NORMAL APPEARANCE (NORMAL)
[2023-11-22] MEDS: amLODIPine 5 MG TABLET PO SCH (09:16)
[2023-11-22] MEDS: lisinopriL 20 MG TABLET PO SCH (09:16)
[2023-11-22] MEDS: ATORVASTATIN 40 MG TABLET PO SCH (09:16)
[2023-11-22] MEDS: ACETAMINOPHEN 325 MG TABLET PO PRN (15:46)
[2023-11-22] MEDS: NICOTINE 21 MG PATCH TOP SCH (15:50)
[2023-11-23 05:54] LABS: BASOPHILS % (AUTO) 0.5 %; HGB - HEMOGLOBIN 12.4 g/dL (14.0-18.0); MEAN CORPUSCULAR HGB CONC 33.5 g/dL (32.0-36.0); MEAN CORPUSCULAR VOLUME 95.4 fL (80.0-94.0); MEAN PLATELET VOLUME 9.3 fL (7.4-11.4); MONOCYTES % (AUTO) 13.1 %; NEUTROPHILS % (AUTO) 72.8 %; PLT - PLATELET COUNT 162 10^3/uL (130-450); RED BLOOD COUNT 3.88 10^6/uL (4.70-6.10); RED CELL DISTRIBUTION WIDTH 13.6 % (12.0-15.0); WHITE BLOOD COUNT 12.3 x10^3/uL (4.8-10.8)
[2023-11-23 06:03] LABS: ABNORMAL LYMPHS % (MANUAL) 0 %; BAND NEUTROPHILS % (MANUAL) 0 %
[2023-11-23 06:11] LABS: CALCIUM 8.5 mg/dL (8.5-10.3); CREATININE 0.8 mg/dL (0.6-1.3); CRP - C-REACTIVE PROTEIN 9.2 mg/dL (<0.5); POTASSIUM 3.6 mmol/L (3.5-4.5)
[2023-11-23 06:28] LABS: DIFFERENTIAL COMMENT MANUAL DIFFERENTIAL; EOSINOPHILS # (MANUAL) 0.2 10^3/uL (0-0.7); LYMPHOCYTES # (MANUAL) 2.5 10^3/uL (1.5-3.5); LYMPHOCYTES % (MANUAL) 20 %; MONOCYTES # (MANUAL) 0.6 10^3/uL (0.0-1.0); PLATELET ESTIMATE, MANUAL NORMAL (130-450,000) (NORMAL); RBC MORPHOLOGY (MULTIPLE) NORMAL APPEARANCE (NORMAL)
--- NOTE | 2023-11-23 08:06 | PROVIDER PROGRESS NOTE ---
Subjective - Prog Note Date Prog Note Date: 11/23/23 Prog Note Time: 08:03 - Subjective Subjective: Patient supine in bed in no acute distress denies dysuria denies suprapubic pain no fever Current Medications - Current Medications Current Medications: Active Medications Acetaminophen (Acetaminophen 325 Mg Tablet) 650 mg PO Q4HR PRN PRN Reason: Pain 1 to 4, or Fever Last Admin: 11/23/23 05:08 Dose: 650 mg Hydrocodone Bitart/Acetaminophen (Hydrocod/Acetam 5/325 Mg Tablet) 1 tab PO Q8H PRN PRN Reason: PAIN >8 Last Admin: 11/22/23 01:20 Dose: 1 tab Amlodipine Besylate (Amlodipine 5 Mg Tablet) 5 mg PO DAILY [facility] Last Admin: 11/22/23 09:16 Dose: 5 mg Atorvastatin Calcium (Atorvastatin 40 Mg Tablet) 80 mg PO DAILY [facility] Last Admin: 11/22/23 09:16 Dose: 80 mg Heparin Sodium (Porcine) (Heparin 5,000 Unit/Ml Vial) 5,000 unit SUBQ BID [facility] Last Admin: 11/22/23 20:13 Dose: 5,000 unit Sodium Chloride (Normal Saline 0.9%) 1,000 mls @ 100 mls/hr IV .Q10H [facility] Last Admin: 11/23/23 01:20 Dose: 100 mls/hr Ceftriaxone Sodium 1 gm/ (Sodium Chloride) 100 mls @ 200 mls/hr IV BID [facility] Last Infusion: 11/23/23 07:57 Dose: Infused Lisinopril (Lisinopril 20 Mg Tablet) 20 mg PO DAILY [facility] Last Admin: 11/22/23 09:16 Dose: 20 mg Nicotine (Nicotine 21 Mg Patch) 1 patch TOP DAILY [facility] Last Admin: 11/22/23 15:50 Dose: 1 patch Ondansetron HCl (Ondansetron 4 Mg/2 Ml Vial) 4 mg IVP Q6HR PRN PRN Reason: Nausea / Vomiting Ondansetron HCl (Ondansetron Odt 4 Mg Tablet) 4 mg TL Q6HR PRN PRN Reason: Nausea / Vomiting Sodium Chloride (Sodium Chloride Flush 0.9% 10 Ml Syringe) 10 ml IVP PRN PRN PRN Reason: NEEDED PER PROVIDER ORDERS Sodium Chloride (Sodium Chloride Flush 0.9% 10 Ml Syringe) 10 ml IVP 0100,0900,1700 [facility] Last Admin: 11/23/23 01:23 Dose: Not Given Tamsulosin HCl (Tamsulosin 0.4 Mg Capsule) 0.4 mg PO BID [facility] Last Admin: 11/22/23 20:12 Dose: 0.4 mg Cholecalciferol (Vitamin D3) [Vitamin D3] 1,000 unit PO DAILY 01/21/15 amLODIPine [Norvasc] 5 mg PO DAILY 01/21/15 Olmesartan Medoxomil 1 tab PO HS 11/13/23 Tamsulosin [Flomax] 1 cap PO DAILY 11/13/23 Aspirin EC [Ecotrin] 81 mg PO DAILY 11/21/23 Atorvastatin Calcium [Lipitor] 80 mg PO HS 11/21/23 Loratadine [All Day Allergy Relief] 10 mg PO DAILY 11/21/23 Thiamine [Vitamin B-1] 100 mg PO DAILY 11/21/23 oxyBUTYnin chloride [Oxybutynin Chloride] 5 mg PO TID 11/21/23 Objective - Vital Signs/Intake & Output Reviewed Vital Signs: Yes Vital Signs: Vital Signs x48h Temp Pulse Resp BP Pulse Ox 11/23/23 07:14 36.8 C 68 18 145/66 H 92 11/23/23 05:09 37.0 C 72 20 129/64 93 Intake & Output: Intake & Output 11/20/23 11/21/23 11/22/23 11/23/23 23:59 23:59 23:59 23:59 Intake Total 1300 3600 1100 Output Total 1695 3925 1450 Balance -395 -325 -350 - Objective General Appearance: positive: No acute distress Eyes Bilateral: positive: PERRL ENT: positive: No signs of dehydration Neck: positive: Trachea midline Respiratory: positive: Breath sounds nml Cardiovascular: positive: Regular rate & rhythm, No murmur Abdomen: positive: Non-tender, No organomegaly, No distention. negative: Guarding, Rebound Skin: positive: Warm Extremities: positive: No pedal edema Neurologic/Psychiatric: positive: Oriented x3 - Lab Results Fish Bones: 11/23/23 05:29 11/23/23 05:29 Other Labs: Lab Results x24hrs 11/23/23 11/23/23 11/22/23 Range/Units 05:29 05:29 07:56 WBC 12.3 H (4.8-10.8) x10^3/uL RBC 3.88 L (4.70-6.10) 10^6/uL Hgb 12.4 L (14.0-18.0) g/dL Hct 37.0 L (42.0-52.0) % MCV 95.4 H (80.0-94.0) fL MCH 32.0 H (27.0-31.0) pg MCHC 33.5 (32.0-36.0) g/dL RDW 13.6 (12.0-15.0) % Plt Count 162 (130-450) 10^3/uL MPV 9.3 (7.4-11.4) fL Neut # (Auto) Not Reportable (1.5-6.6) 10^3/uL Lymph # (Auto) Not Reportable (1.5-3.5) 10^3/uL [place] # (Auto) Not Reportable (0.0-1.0) 10^3/uL Eos # (Auto) Not Reportable (0.0-0.7) 10^3/uL Baso # (Auto) Not Reportable (0.0-0.1) 10^3/uL Absolute Nucleated RBC Not Reportable x10^3/uL Total Counted 100 Band Neuts % (Manual) 0 (0 - 10) % Abnorm Lymph % (Manual) 0 % Nucleated RBC % Not Reportable /100WBC Neutrophils # (Manual) 9.0 H (1.5-6.6) 10^3/uL Lymphocytes # (Manual) 2.5 (1.5-3.5) 10^3/uL Monocytes # (Manual) 0.6 (0.0-1.0) 10^3/uL Eosinophils # (Manual) 0.2 (0-0.7) 10^3/uL Basophils # (Manual) 0.0 (0-0.1) 10^3/uL Differential Comment MANUAL DIFFERENTIAL Manual Slide Review Platelet Estimate NORMAL (130-450,000) (NORMAL) Platelet Morphology (NORMAL) RBC Morph Micro Appear NORMAL APPEARANCE (NORMAL) Sodium 138 138 (135-145) mmol/L Potassium 3.6 3.6 (3.5-4.5) mmol/L Chloride 109 107 (101-111) mmol/L Carbon Dioxide 24 25 (21-32) mmol/L Anion Gap 5.0 L 6.0 (6-13) BUN 12 15 (6-20) mg/dL Creatinine 0.8 0.8 (0.6-1.3) mg/dL Estimated GFR (MDRD) 93 93 (>89) Glucose 91 82 (74-104) mg/dL Calcium 8.5 8.5 (8.5-10.3) mg/dL C-Reactive Protein 9.2 H (<0.5) mg/dL 11/22/23 Range/Units 07:56 WBC 14.3 H (4.8-10.8) x10^3/uL RBC 4.06 L (4.70-6.10) 10^6/uL Hgb 12.7 L (14.0-18.0) g/dL Hct 38.5 L (42.0-52.0) % MCV 94.8 H (80.0-94.0) fL MCH 31.3 H (27.0-31.0) pg MCHC 33.0 (32.0-36.0) g/dL RDW 13.6 (12.0-15.0) % Plt Count 173 (130-450) 10^3/uL MPV 9.1 (7.4-11.4) fL Neut # (Auto) 11.0 H (1.5-6.6) 10^3/uL Lymph # (Auto) 1.4 L (1.5-3.5) 10^3/uL [place] # (Auto) 1.7 H (0.0-1.0) 10^3/uL Eos # (Auto) 0.1 (0.0-0.7) 10^3/uL Baso # (Auto) 0.1 (0.0-0.1) 10^3/uL Absolute Nucleated RBC 0.00 x10^3/uL Total Counted Band Neuts % (Manual) (0 - 10) % Abnorm Lymph % (Manual) % Nucleated RBC % 0.0 /100WBC Neutrophils # (Manual) (1.5-6.6) 10^3/uL Lymphocytes # (Manual) (1.5-3.5) 10^3/uL Monocytes # (Manual) (0.0-1.0) 10^3/uL Eosinophils # (Manual) (0-0.7) 10^3/uL Basophils # (Manual) (0-0.1) 10^3/uL Differential Comment Manual Slide Review Indicated Platelet Estimate NORMAL (130-450,000) (NORMAL) Platelet Morphology NORMAL APPEARANCE (NORMAL) RBC Morph Micro Appear NORMAL APPEARANCE (NORMAL) Sodium (135-145) mmol/L Potassium (3.5-4.5) mmol/L Chloride (101-111) mmol/L Carbon Dioxide (21-32) mmol/L Anion Gap (6-13) BUN (6-20) mg/dL Creatinine (0.6-1.3) mg/dL Estimated GFR (MDRD) (>89) Glucose (74-104) mg/dL Calcium (8.5-10.3) mg/dL C-Reactive Protein (<0.5) mg/dL Sepsis Event Note (H) - Evaluation Current Stage of Sepsis: Severe sepsis Possible source of Sepsis: positive: Genitourinary - Sepsis Criteria Sepsis Criteria: WBC count greater than 12,000 or less than 4000, SBP drop more than 40mHg, Metabolic: lactate > 2 mmol/L Assessment/Plan - Problem List (1) Sepsis Impression: Patient with initial hypotension of 80/60, status post IV hydration currently normotensive Decreased IV hydration rate Continue IV ceftriaxone Follow-upblood culture no growth Follow-up urine culture gm negative await id/sens inflammatory markers noted Sepsis likely secondary to tract CODE STATUS patient at this time wants to be a full code. (2) UTI (urinary tract infection) Conclusion/Plan: Patient with history of BPH and recent urinary retention status post Reyes 8 days ago with Reyes bag coming out repeat bag replaced though currently with a positive UA will be further admitted to the hospital for UTI associated sepsis we will continue with ceftriaxone, patient has opted for Reyes trials and DC of Reyes which is currently done so we will continue with patient's Flomax and increase the dose but now has reyes has pt failed reyes trials.. Follow-up on urine culture and blood culture. gm- on uc and negative on bc . Patient status post multiple catheterization,s/p reyes now , Follow-up urologist as out pt (3) Hypertension Conclusion/Plan: Will continue with patient home dose Norvasc/lisinopril, monitor creatinine (4) BPH (benign prostatic hyperplasia) Conclusion/Plan: Continue with Flomax May need Reyes today, follow-up with urology as an outpatient (5) CVA (cerebral vascular accident) Conclusion/Plan: Patient with history of CVA will continue home dose statin 80 mg p.o. nightly atorvastatin and add an aspirin DVT phylaxis: Subcu heparin
[2023-11-23] MEDS: SODIUM CHLORIDE 0.9% 1,000 ML IV SCH (08:38)
[2023-11-23] MEDS ORDERED: NICOTINE 21 MG PATCH TOP SCH (09:00)
[2023-11-23] MEDS: MELATONIN 3 MG TABLET PO SCH (20:38)
[2023-11-24 05:48] LABS: BASOPHILS # (AUTO) 0.1 10^3/uL (0.0-0.1); BASOPHILS % (AUTO) 0.5 %; EOSINOPHILS # (AUTO) 0.1 10^3/uL (0.0-0.7); EOSINOPHILS % (AUTO) 1.2 %; HCT - HEMATOCRIT 37.8 % (42.0-52.0); HGB - HEMOGLOBIN 12.6 g/dL (14.0-18.0); LYMPHOCYTES # (AUTO) 1.2 10^3/uL (1.5-3.5); LYMPHOCYTES % (AUTO) 11.3 %; MEAN CORPUSCULAR HEMOGLOBIN 31.3 pg (27.0-31.0); MEAN CORPUSCULAR HGB CONC 33.3 g/dL (32.0-36.0); MEAN CORPUSCULAR VOLUME 93.8 fL (80.0-94.0); MEAN PLATELET VOLUME 9.4 fL (7.4-11.4); MONOCYTES # (AUTO) 1.3 10^3/uL (0.0-1.0); MONOCYTES % (AUTO) 12.2 %; NEUTROPHILS # (AUTO) 8.1 10^3/uL (1.5-6.6); NEUTROPHILS % (AUTO) 74.2 %; PLT - PLATELET COUNT 176 10^3/uL (130-450); RED BLOOD COUNT 4.03 10^6/uL (4.70-6.10); RED CELL DISTRIBUTION WIDTH 13.2 % (12.0-15.0); WHITE BLOOD COUNT 10.9 x10^3/uL (4.8-10.8)
[2023-11-24 06:00] LABS: CALCIUM 8.7 mg/dL (8.5-10.3); CREATININE 0.7 mg/dL (0.6-1.3); CRP - C-REACTIVE PROTEIN 4.9 mg/dL (<0.5); POTASSIUM 3.6 mmol/L (3.5-4.5)
--- NOTE | 2023-11-24 07:54 | PROVIDER PROGRESS NOTE ---
Subjective - Prog Note Date Prog Note Date: 11/24/23 Prog Note Time: 07:52 - Subjective Subjective: Patient with poor sleep overnight, denies chest pain shortness of breath or fever. Current Medications - Current Medications Current Medications: Active Medications Acetaminophen (Acetaminophen 325 Mg Tablet) 650 mg PO Q4HR PRN PRN Reason: Pain 1 to 4, or Fever Last Admin: 11/23/23 05:08 Dose: 650 mg Hydrocodone Bitart/Acetaminophen (Hydrocod/Acetam 5/325 Mg Tablet) 1 tab PO Q8H PRN PRN Reason: PAIN >8 Last Admin: 11/22/23 01:20 Dose: 1 tab Amlodipine Besylate (Amlodipine 5 Mg Tablet) 5 mg PO DAILY [facility] Last Admin: 11/23/23 08:37 Dose: 5 mg Atorvastatin Calcium (Atorvastatin 40 Mg Tablet) 80 mg PO DAILY [facility] Last Admin: 11/23/23 08:37 Dose: 80 mg Heparin Sodium (Porcine) (Heparin 5,000 Unit/Ml Vial) 5,000 unit SUBQ BID [facility] Last Admin: 11/23/23 20:39 Dose: 5,000 unit Ceftriaxone Sodium 1 gm/ (Sodium Chloride) 100 mls @ 200 mls/hr IV BID [facility] Last Infusion: 11/24/23 07:42 Dose: Infused Sodium Chloride (Normal Saline 0.9%) 1,000 mls @ 50 mls/hr IV .Q20H [facility] Last Admin: 11/23/23 14:03 Dose: 50 mls/hr Lisinopril (Lisinopril 20 Mg Tablet) 20 mg PO DAILY [facility] Last Admin: 11/23/23 08:37 Dose: 20 mg Melatonin (Melatonin 3 Mg Tablet) 3 mg PO QPM [facility] Last Admin: 11/23/23 20:38 Dose: 3 mg Nicotine (Nicotine 21 Mg Patch) 1 patch TOP DAILY [facility] Last Admin: 11/23/23 08:37 Dose: 1 patch Ondansetron HCl (Ondansetron 4 Mg/2 Ml Vial) 4 mg IVP Q6HR PRN PRN Reason: Nausea / Vomiting Ondansetron HCl (Ondansetron Odt 4 Mg Tablet) 4 mg TL Q6HR PRN PRN Reason: Nausea / Vomiting Sodium Chloride (Sodium Chloride Flush 0.9% 10 Ml Syringe) 10 ml IVP PRN PRN PRN Reason: NEEDED PER PROVIDER ORDERS Sodium Chloride (Sodium Chloride Flush 0.9% 10 Ml Syringe) 10 ml IVP 0100,0900,1700 [facility] Last Admin: 11/24/23 00:53 Dose: Not Given Tamsulosin HCl (Tamsulosin 0.4 Mg Capsule) 0.4 mg PO BID [facility] Last Admin: 11/23/23 20:38 Dose: 0.4 mg Cholecalciferol (Vitamin D3) [Vitamin D3] 1,000 unit PO DAILY 01/21/15 amLODIPine [Norvasc] 5 mg PO DAILY 01/21/15 Olmesartan Medoxomil 1 tab PO HS 11/13/23 Tamsulosin [Flomax] 1 cap PO DAILY 11/13/23 Aspirin EC [Ecotrin] 81 mg PO DAILY 11/21/23 Atorvastatin Calcium [Lipitor] 80 mg PO HS 11/21/23 Loratadine [All Day Allergy Relief] 10 mg PO DAILY 11/21/23 Thiamine [Vitamin B-1] 100 mg PO DAILY 11/21/23 oxyBUTYnin chloride [Oxybutynin Chloride] 5 mg PO TID 11/21/23 Objective - Vital Signs/Intake & Output Reviewed Vital Signs: Yes Vital Signs: Vital Signs x48h Temp Pulse Resp BP Pulse Ox 11/24/23 03:53 36.9 C 84 17 160/84 H 94 11/24/23 00:02 36.9 C 72 17 162/76 H 95 Intake & Output: Intake & Output 11/21/23 11/22/23 11/23/23 11/24/23 23:59 23:59 23:59 23:59 Intake Total 1300 3600 4757.833 1700 Output Total 1695 3925 4325 2400 Balance -395 -325 432.833 -700 - Objective General Appearance: positive: No acute distress Eyes Bilateral: positive: PERRL Neck: positive: No JVD Respiratory: positive: Breath sounds nml Cardiovascular: positive: Regular rate & rhythm, No murmur Abdomen: positive: Non-tender, Nml bowel sounds, No distention. negative: Guarding, Rebound Skin: positive: Warm Extremities: positive: No pedal edema - Lab Results Fish Bones: 11/24/23 05:20 11/24/23 05:20 Other Labs: Lab Results x24hrs 11/24/23 11/24/23 Range/Units 05:20 05:20 WBC 10.9 H (4.8-10.8) x10^3/uL RBC 4.03 L (4.70-6.10) 10^6/uL Hgb 12.6 L (14.0-18.0) g/dL Hct 37.8 L (42.0-52.0) % MCV 93.8 (80.0-94.0) fL MCH 31.3 H (27.0-31.0) pg MCHC 33.3 (32.0-36.0) g/dL RDW 13.2 (12.0-15.0) % Plt Count 176 (130-450) 10^3/uL MPV 9.4 (7.4-11.4) fL Neut # (Auto) 8.1 H (1.5-6.6) 10^3/uL Lymph # (Auto) 1.2 L (1.5-3.5) 10^3/uL [place] # (Auto) 1.3 H (0.0-1.0) 10^3/uL Eos # (Auto) 0.1 (0.0-0.7) 10^3/uL Baso # (Auto) 0.1 (0.0-0.1) 10^3/uL Absolute Nucleated RBC 0.00 x10^3/uL Nucleated RBC % 0.0 /100WBC Sodium 139 (135-145) mmol/L Potassium 3.6 (3.5-4.5) mmol/L Chloride 108 (101-111) mmol/L Carbon Dioxide 26 (21-32) mmol/L Anion Gap 5.0 L (6-13) BUN 11 (6-20) mg/dL Creatinine 0.7 (0.6-1.3) mg/dL Estimated GFR (MDRD) 108 (>89) Glucose 108 H (74-104) mg/dL Calcium 8.7 (8.5-10.3) mg/dL C-Reactive Protein 4.9 H (<0.5) mg/dL ABX Reporting Has patient been on IV antibiotics over the past 48 hours?: Yes Sepsis Event Note (H) - Evaluation Current Stage of Sepsis: Severe sepsis Possible source of Sepsis: positive: Genitourinary - Sepsis Criteria Sepsis Criteria: WBC count greater than 12,000 or less than 4000, SBP drop more than 40mHg, Metabolic: lactate > 2 mmol/L Assessment/Plan - Problem List (1) Sepsis Impression: Patient with initial hypotension of 80/60, status post IV hydration currently hypertensive DC IV fluids Continue IV ceftriaxone Follow-upblood culture no growth Follow-up urine culture gm negative(2 organisms )await id/sens inflammatory markers noted Sepsis likely secondary to tract CODE STATUS patient at this time wants to be a full code. (2) UTI (urinary tract infection) Conclusion/Plan: Patient with history of BPH and recent urinary retention status post Reyes 8 days ago with Reyes bag coming out repeat bag replaced though currently with a positive UA will be further admitted to the hospital for UTI associated sepsis we will continue with ceftriaxone, patient has opted for Reyes trials and DC of Reyes which is currently done so we will continue with patient's Flomax and increase the dose but now has reyes has pt failed reyes trials.. Follow-up on urine culture and blood culture. gm- on uc and negative on bc . Patient status post multiple catheterization,s/p reyes now , Follow-up urologist as out pt (3) Hypertension Conclusion/Plan: Will continue with patient home dose Norvasc/lisinopril, monitor creatinine DC IV fluids (4) BPH (benign prostatic hyperplasia) Conclusion/Plan: Continue with Flomax s/p Reyes Placement, follow-up with urology as an outpatient With the Reyes. (5) CVA (cerebral vascular accident) Conclusion/Plan: Patient with history of CVA will continue home dose statin 80 mg p.o. nightly atorvastatin and added an aspirin DVT phylaxis: Subcu heparin
[2023-11-25 05:51] LABS: BASOPHILS % (AUTO) 0.3 %; EOSINOPHILS # (AUTO) 0.1 10^3/uL (0.0-0.7); EOSINOPHILS % (AUTO) 1.2 %; HCT - HEMATOCRIT 39.7 % (42.0-52.0); HGB - HEMOGLOBIN 13.4 g/dL (14.0-18.0); LYMPHOCYTES # (AUTO) 1.4 10^3/uL (1.5-3.5); LYMPHOCYTES % (AUTO) 11.5 %; MEAN CORPUSCULAR HEMOGLOBIN 31.5 pg (27.0-31.0); MEAN CORPUSCULAR HGB CONC 33.8 g/dL (32.0-36.0); MEAN CORPUSCULAR VOLUME 93.2 fL (80.0-94.0); MEAN PLATELET VOLUME 9.1 fL (7.4-11.4); MONOCYTES # (AUTO) 1.3 10^3/uL (0.0-1.0); MONOCYTES % (AUTO) 10.6 %; NEUTROPHILS # (AUTO) 9.1 10^3/uL (1.5-6.6); PLT - PLATELET COUNT 194 10^3/uL (130-450); RED BLOOD COUNT 4.26 10^6/uL (4.70-6.10); RED CELL DISTRIBUTION WIDTH 13.4 % (12.0-15.0)
[2023-11-25 06:11] LABS: CALCIUM 8.7 mg/dL (8.5-10.3); CREATININE 0.8 mg/dL (0.6-1.3); POTASSIUM 3.6 mmol/L (3.5-4.5)
--- NOTE | 2023-11-25 11:28 | DISCHARGE SUMMARY ---
Discharge Summary Admit Date: 11/21/23 Discharge Date: 11/25/23 Discharging Provider: Trish Primary Care Provider: Kandace Fuentes Code Status: Attempt Resuscitation Condition at Discharge: Stable Discharge Disposition: Home Health Service - DIAGNOSES Admission Diagnoses: 1. Sepsis 2. UTI 3. HTN 4. BPH 5. CVA Discharge Diagnoses with Status of Each Condition: 1. Sepsis, resolved 2. UTI, Klebsiella and serratia bacteria 3. HTN, chronic, stable 4. BPH w/urinary retention, s/p reyes catheter placement 5. CVA, chronic, stable s/p bilateral CEA 6. Vascular dementia, dx'd 1 yr ago, mild (still drives, no difficulties) 7. COPD, chronic, stable 8. Tobacco dependence 9. ALEE - HPI History of Present Illness: Per H&P: This is an 83-year-old male with past medical history of CVA bilateral carotid endarterectomy hypertension tobacco abuse COPD on no home O2 BPH with recent urinary retention and Reyes insertion 8 days ago while patient about 3 days ago developed generalized weakness but yesterday patient Reyes became disconnected as he was draining it into the garbage can and then went to the urgent care where patient had the bag replaced. Today called paramedics as patient was found to be significantly weak and by patient financial services coordinator patient was found to have hy potension with blood pressure of 80/60 given fluids with good response brought into ER where patient was found to have a positive UA and leukocytosis being admitted for urosepsis. At this time patient denies any headache eye pain ear pain chest pain shortness of breath fevers chills nausea vomiting diarrhea constipation GI bleed bleed denies any focal weakness admits to generalized weakness and a further provide patient a bit confused initially currently awake oriented x 3 following commands patient denies urinary frequency or dysuria has had Reyes. - HOSPITAL COURSE Hospital Course: 83 yo male w/underlying HTN, BPH resulting in urinary retention requiring reyes catheterization who was admitted w/UTI and sepsis. He was placed on IV ceftriaxone. Blood cultures remained negative throughout the hospitalization. Urine cultures were positive for serratia marcescens and klebsiella oxytoca. These organisms were both sensitive to fluoroquinolones and cephalosporins. He was evaluated by physical therapy and he was felt to be safe for dc home w/home health PT. He did have a mild rash noted to his back which was in a follicular pattern (did not appear to be drug rash). He is being discharged in stable condition. He will be d/c'd on oral abx for an additional 2 days (total of 10 days of abx therapy). Reyes cath to remain in place (he prefers a leg bag). He will f/u w/urology on 11/30/23. He did become tearful during my visit regarding the loss of his best friend approximately 1 year ago while he was recovering from his CEA. Encouraged him to reach out to food and beverage coordinator to connect for bereavement support. Pt is d/c'd in stable condition. - ALLERGIES Allergies/Adverse Reactions: Allergies Allergy/AdvReac Type Severity Reaction Status Date / Time Sulfa (Sulfonamide Allergy Hives Verified 11/21/23 13:08 Antibiotics) - MEDICATIONS Home Medications: Ambulatory Orders Medication Instructions Recorded Confirmed Cholecalciferol (Vitamin D3) 1,000 unit PO DAILY 01/21/15 11/21/23 [Vitamin D3] amLODIPine [Norvasc] 5 mg PO DAILY 01/21/15 11/21/23 HYDROcod/ACETAM 5/325 [[place] 5/325] 1 ea PO Q8H PRN #14 tablet 11/13/23 11/21/23 Olmesartan Medoxomil 1 tab PO HS 11/13/23 11/21/23 Aspirin EC [Ecotrin] 81 mg PO DAILY 11/21/23 11/21/23 Atorvastatin Calcium [Lipitor] 80 mg PO HS 11/21/23 11/21/23 Loratadine [All Day Allergy Relief] 10 mg PO DAILY 11/21/23 11/21/23 Thiamine [Vitamin B-1] 100 mg PO DAILY 11/21/23 11/21/23 oxyBUTYnin chloride [Oxybutynin 5 mg PO TID 11/21/23 11/21/23 Chloride] Cefdinir 300 mg PO BID #4 cap 11/25/23 Tamsulosin [Flomax] 0.4 mg PO BID #60 cap 11/25/23 - PHYSICAL EXAM AT DISCHARGE General Appearance: positive: No acute distress, Alert Eyes Bilateral: positive: Normal inspection, PERRL Neck: positive: Nml inspection, No JVD Respiratory: positive: Chest non-tender, No respiratory distress, Breath sounds nml Cardiovascular: positive: Regular rate & rhythm, No murmur Abdomen: positive: Non-tender, No organomegaly, Nml bowel sounds, No distention Skin: positive: Color nml, Skin rash (limited to his back, follicular pattern) Extremities: positive: Non-tender, Nml appearance, No pedal edema Neurologic/Psychiatric: positive: Oriented x3 - LABS Result Diagrams: 11/25/23 05:34 11/25/23 05:34 - SEPSIS Current Stage of Sepsis: Severe sepsis Possible source of Sepsis: Genitourinary Sepsis Criteria: WBC count greater than 12,000 or less than 4000, SBP drop more than 40mHg, Metabolic: lactate > 2 mmol/L - QUALITY (Female Hip Fx Only) Was patient sent home on osteoporosis medication?: No - TIME SPENT Time Spent in Discharge (Minutes): 40
--- NOTE | 2023-11-25 11:36 | Discharge Plan ---
Discharge Plan for SNF / [facility] - Discharge Plan And Transition Orders Problem Reviewed?: Yes Disposition: 01 Home, Self Care Condition: Stable Allergies and Adverse Reactions: Allergies Allergy/AdvReac Type Severity Reaction Status Date / Time Sulfa (Sulfonamide Allergy Hives Verified 11/21/23 13:08 Antibiotics) Health Concerns: 1) Take all antibiotics until gone 2) If you miss a dose of antibiotics, take it when you remember; if you don't remember until the next dose is due, skip the dose and continue to take the antibiotics as scheduled 3) Consider taking probiotics while you are on this medication 4) Follow-up with Urology on 11/29 as scheduled 5) Home health for Physical therapy for strength and balance 6) Follow- up with orthopedic surgery regarding the severe arthritis in your left knee and the meniscal injury in your right knee 7) call Josefina Jasso, Associate Designer at [facility] at [phone] to inqure about bereavement services regarding your best friend's 8) Return to the ED for recurrent fevers, inability to hold down food/fluids, urine not draining into your catheter bag, abdominal pain or swelling - SNF / [facility] Transition Orders Medicare Certification Statement: I certify that [facility] is medically necessary on a continuing basis for any of the conditions for which she/he is receiving care during hospitalization. Notify PCP of admission and forward orders to primary provider for signature. Other Notification Orders: Call PCP immediately if patient develops dyspnea, chest pain/tightness or edema. Additional Bowel Program Orders: If no BM after 2 days, nurse may give M.O.M. 30ml PO PRN and/or ducolax Supp 1 VA and/or BIRDIE 250mg P.O., and/or senna 1-2 tabs PO. On day 3 nurse may give repeat above order until residents constipation is resolved. Medication Orders: PLEASE REFER TO THE DISCHARGE MEDICATION LIST. - Medications New Prescriptions: Cefdinir 300 mg PO BID #10 cap Tamsulosin [Flomax] 0.4 mg PO BID #60 cap - Diet Texture: Regular
--- NOTE | 2023-11-25 12:07 | Discharge Plan ---
Discharge Plan Problem Reviewed?: Yes Disposition: Home Health Service Condition: Stable Prescriptions: Cefdinir 300 mg PO BID #4 cap Tamsulosin [Flomax] 0.4 mg PO BID #60 cap Instruction Topics: Catheter Bag Urinary Empty Clean, Catheter Indwelling Urinary Dc, Leg Bag Care Dc, Antibiotics Health Concerns: 1) Take all antibiotics until gone 2) If you miss a dose of antibiotics, take it when you remember; if you don't remember until the next dose is due, skip the dose and continue to take the antibiotics as scheduled 3) Consider taking probiotics while you are on this medication 4) Follow-up with Urology on 11/29 as scheduled 5) Home health for Physical therapy for strength and balance 6) Follow- up with orthopedic surgery regarding the severe arthritis in your left knee and the meniscal injury in your right knee 7) call Josefina Jasso, News Intern at [facility] at [phone] to inqure about bereavement services regarding your best friend's 8) Return to the ED for recurrent fevers, inability to hold down food/fluids, urine not draining into your catheter bag, abdominal pain or swelling Follow-Up Care: Home Health - PT No Smoking: If you smoke, Please STOP! Call for help. Follow-up with: Kandace Fuentes MD [Primary Care Provider] -
[2023-11-25 15:33] VITALS: BP 141/72; O2SAT 94
== END 2023-11-25 16:00 | disposition home health service (06) | DRG 872 ==
LOC: EDUNIT# → ED 13:03 → MS2 15:26
PROVIDERS: ADMIT Hospitalist; ATTEND Family Medicine
DX: A41.9 Sepsis, unspecified organism (principal); A41.4 Sepsis due to anaerobes; I45.10 Unspecified right bundle-branch block; N39.0 Urinary tract infection, site not specified; A41.53 Sepsis due to Serratia; I10 Essential (primary) hypertension; N40.1 Benign prostatic hyperplasia with lower urinary tract symptoms; R33.8 Other retention of urine; F01.A0 Vascular dementia, mild, without behavioral disturbance, psychotic disturbance, mood disturbance, and anxiety; J44.9 Chronic obstructive pulmonary disease, unspecified; F17.200 Nicotine dependence, unspecified, uncomplicated; G47.33 Obstructive sleep apnea (adult) (pediatric); R65.20 Severe sepsis without septic shock; Z79.899 Other long term (current) drug therapy; Z86.73 Personal history of transient ischemic attack (TIA), and cerebral infarction without residual deficits; Z88.2 Allergy status to sulfonamides
CPT/HCPCS: 36415; 70450; 80048; 80053; 81001; 83605; 83735; 85025; 86140; 87040; 87077; 87086; 87181; 93005; 96374; 97162; 97530; 99284; 99285; A9270; J3590; 81003